=== PATIENT | female | born 1990 | race Hispanic/Latino ===

== ENCOUNTER 2021-07-09 08:13 | Emergency (ER) | payer OTHER, SELFPAY ==
--- NOTE | 2021-07-09 08:20 | ED.URI ---
HPI - URI/Sore Throat General Chief Complaint: Upper Respiratory Infection Stated Complaint: cough Time Seen by Provider: 07/09/21 08:30 Source: patient, RN notes reviewed and old records reviewed Mode of arrival: ambulatory Limitations: no limitations History of Present Illness HPI Narrative: 31 year old female who presents to [facility] with complaints of cough, runny nose and some sinus pressure for 1 week. Patient denies any fevers no sweats or chills or any body aches. Patient reports that she has not had Covid or influenza vaccines. Patient states she has been taking cold and flu day and night medications with no resolution of symptoms. Patient states coworker coughed on her who was ill does not know if he was positive for Covid. MD elicited complaint: cough, rhinorrhea, nasal congestion and sinus pain Pertinent past history: other (Lupus) Related Data Home Medications Medication Instructions Recorded Confirmed etonogestrel [Implanon] 1 implant SUBDERMAL ONCE 07/09/21 07/09/21 Allergies Allergy/AdvReac Type Severity Reaction Status Date / Time prednisone Allergy Rash Verified 07/09/21 08:32 Review of Systems Review of Systems: CONSTITUTIONAL: Denies fever, chills, or sweats. EYES: Denies visual changes, redness, or discharge. ENT: Positive rhinorrhea, congestion, no sore throat, or otalgia. CARDIOVASCULAR: Denies chest pain, palpitations, or edema. RESPIRATORY: Positive cough denies dyspnea. GASTROINTESTINAL: Denies abdominal pain, nausea, vomiting, or diarrhea. GENITOURINARY: Denies dysuria or hematuria. SKIN: Denies rash or itching. MUSCULOSKELETAL: Reports some back pain, joint pain, denies body aches. NEUROLOGIC: Denies headache, numbness, or weakness. PSYCHIATRIC: Denies anxiety or depression. All systems reviewed & are unremarkable except as noted in HPI and below PMFSH Past Medical History Medical History (Updated 07/09/21 @ 08:58 by Desirae Aguilar NP) Lupus Surgical History Surgical History (Updated 07/09/21 @ 08:22 by Desirae Aguilar NP) Hx of cholecystectomy Family History Family History (Updated 09/12/17 @ 09:00 by DOCTOR UNKNOWN) Other Diabetes mellitus Social History Social History (Updated 07/09/21 @ 08:36 by Desirae Aguilar NP) Smoking status: Never smoker Alcohol intake: current Substance use: never Living arrangements: with family Gender identity (if verbalized by the patient): Female Comments At time of signature, agree with nursing past medical, surgical, social and family history. There is no relevant family history pertinent to the presenting complaint Exam Narrative: GENERAL: Well-appearing, well-nourished, and in no acute distress. HEAD: Normocephalic, atraumatic. EYES: PERRLA and EOMI. ENT: Nares red with clear rhinorrhea no epistaxis. Mucous membranes moist. TMs normal with good light reflex, throat with mild redness no exudates or lesions no tonsil enlargement NECK: Supple. No lymph adenopathy CHEST: Clear to auscultation. No respiratory distress. SaO2 100% on room air HEART: Regular rate and rhythm. No murmur heard. Normal peripheral pulses. ABDOMEN: Soft, nontender, nondistended, normal active bowel sounds. EXTREMITIES: Normal range of motion. No edema. SKIN: Warm, dry, no rash. NEURO: No focal deficits. Alert and oriented x3. Course Course Level of Care: Express Care Visit Vital Signs Vital signs: Vital Signs Temperature 36.4 C L 07/09/21 08:24 Pulse Rate 76 07/09/21 08:24 Respiratory Rate 16 07/09/21 08:24 Blood Pressure 119/68 07/09/21 08:24 Pulse Oximetry 100 07/09/21 08:24 Temperature 36.4 C L 07/09/21 08:24 Pulse Rate 76 07/09/21 08:24 Respiratory Rate 16 07/09/21 08:24 Blood Pressure 119/68 07/09/21 08:24 Pulse Oximetry 100 07/09/21 08:24 MDM - URI/Sore Throat Differential Diagnosis Differential diagnosis: Likely upper respiratory infection, sinusitis, viral infection and o
[2021-07-09 08:24] VITALS: BP 119/68; PULSE 76; RESP 16; TEMP 36.4; O2SAT 100
== END 2021-07-09 09:05 | disposition home or self-care (01) ==
PROVIDERS: Emergency Provider Registered Nurse; PCP Registered Nurse
DX: B34.9 Viral infection, unspecified (principal); J06.9 Acute upper respiratory infection, unspecified; Z20.822 Contact with and (suspected) exposure to COVID-19; M32.9 Systemic lupus erythematosus, unspecified
CPT/HCPCS: 87426; 87804; 99213; C9803; G0463

== ENCOUNTER 2022-08-06 14:10 | Emergency (ER) | payer OTHER, SELFPAY ==
[2022-08-06 14:19] VITALS: BP 124/77; PULSE 98; RESP 14; TEMP 37.9; O2SAT 99
--- NOTE | 2022-08-06 14:23 | ED.URI ---
HPI - URI/Sore Throat General Chief Complaint: Upper Respiratory Infection Stated Complaint: sore throat Time Seen by Provider: 08/06/22 14:39 Source: patient and RN notes reviewed Mode of arrival: ambulatory Limitations: no limitations History of Present Illness HPI Narrative: 32-year-old female presents concern for dry cough that started last night, sore throat. Reports today she started having hot and cold spells. 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 She denies taking any medications for her symptoms. MD elicited complaint: sore throat Related Data Home Medications Medication Instructions Recorded Confirmed etonogestrel 68 mg subdermal 1 implant subdermal ONCE 07/09/21 08/06/22 implant ergocalciferol (vitamin D2) 1,250 1,250 mcg PO DAILY 08/06/22 08/06/22 mcg (50,000 unit) capsule Allergies Allergy/AdvReac Type Severity Reaction Status Date / Time prednisone Allergy Rash Verified 08/06/22 14:14 Review of Systems Review of Systems: CONSTITUTIONAL: For malaise, chills, sweats EYES: Denies visual changes, redness, or discharge. ENT: Denies rhinorrhea, congestion, sinus pain, otalgia. Reports sore throat. CARDIOVASCULAR: Denies chest pain, palpitations, or edema. RESPIRATORY: Reports cough. Denies dyspnea. GASTROINTESTINAL: Denies abdominal pain, nausea, vomiting, diarrhea SKIN: Denies rash or itching. MUSCULOSKELETAL: Reports myalgia. NEUROLOGIC: Denies headache. All systems reviewed & are unremarkable except as noted in HPI and below PMFSH Past Medical History Medical History (Updated 08/06/22 @ 15:02 by Annalise Shane NP) Lupus Surgical History Surgical History (Updated 07/09/21 @ 08:22 by Desirae Aguilar NP) Hx of cholecystectomy Family History Family History (Updated 09/12/17 @ 09:00 by DOCTOR UNKNOWN) Other Diabetes mellitus Social History Social History (Updated 07/09/21 @ 08:36 by Desirae Aguilar NP) Smoking status: Never smoker Alcohol intake: current Substance use: never Living arrangements: with family Gender identity (if verbalized by the patient): Female Comments At time of signature, agree with nursing past medical, surgical, social and family history. There is no relevant family history pertinent to the presenting complaint Exam Narrative: GENERAL: Well-appearing, well-nourished, and in no acute distress. HEAD: Normocephalic EYES: PERRLA, conjunctivae clear ENT: Nares clear, turbinates edematous and erythematous, clear discharge. Mucous membranes moist. TM pearly ferguson with sharp light reflex bilaterally; no tragal tenderness. Oropharynx not erythematous without lesions. Tonsils not enlarged and without exudate, no drooling, no hoarseness, no trismus, uvula midline. NECK: Supple. No lymphadenopathy CHEST: Clear to auscultation, breath sounds equal. No wheezing, rhonchi, rales, or stridor. No respiratory distress, speaks in full sentences. HEART: Regular rate and rhythm. No murmur heard. SKIN: Warm, dry, no rash. NEURO: Alert and oriented x3. PSYCH: Normal mood and affect Course Course Emergency Course: Patient is aware of diagnosis, understands and agrees to treatment plan. Anticipatory guidance given. Patient agrees to follow-up as directed and is aware of reasons to seek care at the emergency department. Portions of this record may have been created with voice recognition software Level of Care: Express Care Visit Vital Signs Vital signs: Vital Signs Temperature 100.2 F H 08/06/22 14:19 Pulse Rate 98 08/06/22 14:19 Respiratory Rate 14 08/06/22 14:19 Blood Pressure 124/77 08/06/22 14:19 Pulse Oximetry 99 08/06/22 14:19 Oxygen Delivery Room Air 08/06/22 14:19 Temperature 100.2 F H 08/06/22 14:19 Pulse Rate 98 08/06/22 14:19 Respiratory Rate 14 08/06/22 14:19 Blood Pressure 124/77 08/06/22 14:19 Pulse Oximetry 99 08/06/22 14:19 Oxygen Delivery Room Air 08/06/22 14:19 Reviewed.
== END 2022-08-06 15:07 | disposition home or self-care (01) ==
PROVIDERS: Emergency Provider Nurse Practitioner; PCP Registered Nurse
DX: J06.9 Acute upper respiratory infection, unspecified (principal); Z20.822 Contact with and (suspected) exposure to COVID-19; M32.9 Systemic lupus erythematosus, unspecified
CPT/HCPCS: 87081; 87426; 87804; 87880; 99213; C9803; G0463

== ENCOUNTER 2024-02-03 12:52 | Emergency (ER) | payer OTHER, SELFPAY ==
[2024-02-03 13:05] VITALS: BP 130/81; PULSE 85; RESP 16; TEMP 37; O2SAT 98
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
== END 2024-02-03 13:40 | disposition home or self-care (01) ==
PROVIDERS: Emergency Provider Nurse Practitioner; PCP Registered Nurse
DX: M54.50 Low back pain, unspecified (principal); M32.9 Systemic lupus erythematosus, unspecified
CPT/HCPCS: 99213; G0463

== ENCOUNTER 2024-08-14 18:38 | Emergency (ER) | payer OTHER, SELFPAY ==
--- OUTSIDE RECORDS SUMMARY | 2024-08-14 18:40 | XMS_ITS | Patient Health Summary ---
Author Organization [facility] Address [address] [place] [address] Care Team Providers Care Appliance Counselor Name Role Phone Timmy Wilson TELEVISION NEWS PRODUCER-PENS AND PENCILS DIPPER Primary Care Pro vider Note from [facility],non-owned Affiliates and Associated Physician Practices is amultiple site organization consisting of ambulatory clinics and hospital sitesin [place], [place] and [place]. This disclosure is being madepursuant to the Care Everywhere program and may not contain all information available regarding this patient. Last updated 18.[facility] Allergies No known active allergies Medications * Be aware that medications may not be up to date on this document. Alwaysverify current medications with the patient. * etonogestrel (NEXPLANON) 68 MG implant 68 mg by Subdermal route as directed * hydroxychloroquine (PLAQUENIL) 200 MG tablet(Started 10/04/2018) Take 1 tablet by mouth 2 times daily Reasons: positive ALBARO/ malar rash 2 refills remaining * meloxicam (MOBIC) 15 MG tablet(Started 06/25/2020) Take 1 tablet by mouth once daily 1 refill by 06/25/2021 * vitamin D3-cholecalciferol (CHOLECALCIFEROL) 25 MCG (1000 UNITS) tablet (Started 10/01/2020) Take 1 (one) tablet by mouth once daily 1 refill by 10/01/2021 Active Problems Problem Noted Date Diagnosed Date Positive ALBARO (antinuclear antibody) 08/09/2018 Arthralgia 08/09/2018 Myalgia 08/09/2018 Fatigue 08/09/2018 Social History Tobacco Use Types Packs/Day Years Used Date Smoking Tobacco: Never Smokeless Tobacco: Never Alcohol Use Standard Drinks/Week Comments No 0 (1 standard drink = 0.6 oz pur e alcohol) Sex and Gender Information Value Date Recorded Sex Assigned at Not on file Gender Identity Not on file Sexual Orientation Not on file Last Filed Vital Signs Vital Sign Reading Time Taken Comments Blood Pressure 112/64 10/04/2018 11:59 AM CDT Pulse 62 10/04/2018 11:59 AM CDT Temperature 36.1 C (97 F) 06/25/2020 2:41 PM LYRIC WRITER Respiratory Rate - - Oxygen Saturation 99% 10/04/2018 11:59 AM CDT Inhaled Oxygen Concentration - - Weight 93 kg (205 lb) 06/25/2020 2:41 PM LYRIC WRITER Height 157.5 cm (5' 2 ) 06/25/2020 2:41 PM LYRIC WRITER Body Mass Index 37.49 06/25/2020 2:41 PM LYRIC WRITER Procedures * LDH BLOOD(Performed 06/25/2020) Performed for Positive ALBARO (antinuclear antibody) * CK BLOOD(Performed 06/25/2020) Performed for Positive ALBARO (antinuclear antibody) * ERYTHROCYTE SEDIMENTATION RATE(Performed 06/25/2020) Performed for Positive ALBARO (antinuclear antibody) * COMPREHENSIVE METABOLIC PANEL(Performed 06/25/2020) Performed for Positive ALBARO (antinuclear antibody) * CBC W AUTO DIFFERENTIAL(Performed 06/25/2020) Performed for Positive ALBARO (antinuclear antibody) * TSH(Performed 06/25/2020) Performed for Positive ALBARO (antinuclear antibody) * VITAMIN D 25-HYDROXY(Performed 06/25/2020) Performed for Positive ALBARO (antinuclear antibody) * SS-B (SJOGREN'S) ANTIBODY(Performed 06/25/2020) Performed for Positive ALBARO (antinuclear antibody) * SHERMAN/MACHINE REBUILDER (SUZANNE) ANTIBODY IGG(Performed 06/25/2020) Performed for Positive ALBARO (antinuclear antibody) * RIBOSOMAL P PROTEIN ANTIBODY(Performed 06/25/2020) Performed for Positive ALBARO (antinuclear antibody) * DNA ANTIBODY DS CRITHIDIA TITER(Performed 06/25/2020) Performed for Positive ALBARO (antinuclear antibody) * COMPLEMENT C3(Performed 06/25/2020) Performed for Positive ALBARO (antinuclear antibody) * COMPLEMENT C4(Performed 06/25/2020) Performed for Positive ALBARO (antinuclear antibody) * SS-A (SJOGREN'S) 52+60 ANTIBODIES(Performed 06/25/2020) Performed for Positive ALBARO (antinuclear antibody) * QUANTIFERON-TB GOLD PLUS 4-TUBE(Performed 06/25/2020) Performed for Positive ALBARO (antinuclear antibody) * ALDOLASE(Performed 06/25/2020) Performed for Positive ALBARO (antinuclear antibody) * C-REACTIVE PROTEIN(Performed 06/25/2020) Performed for Positive ALBARO (antinuclear antibody) * CHROMATIN ANTIBODY(Performed 06/25/2020) Performed for Positive ALBARO (antinuclear antibody) * HEPATITIS B SURFACE ANTIGEN W RFLX CONFIRMATION(Performed 06/25/2020) Performed for Positive ALBARO (antinuclear antibody) * HEPATITIS B CORE ANTIBODY TOTAL(Performed 06/25/2020) Performed for Positive ALBARO (antinuclear antibody) * HEPATITIS C AB SCREEN RFLX NAAT QUANT(Performed 06/25/2020) Performed for Positive ALBARO (antinuclear antibody) * ALBARO BLOOD SCREEN W/REFLEX TITER(Performed 06/25/2020) Performed for Positive ALBARO (antinuclear antibody) * URINALYSIS MICROSCOPIC ONLY REFLEXED(Performed 08/09/2018) Performed for Positive ALBARO (antinuclear antibody), Arthralgia, unspecified joint, Myalgia, Fatigue,unspecified type * CBC W AUTO DIFFERENTIAL(Performed 08/09/2018) Performed for Positive ALBARO (antinuclear antibody), Arthralgia, unspecified joint, Myalgia, Fatigue,unspecified type * COMPREHENSIVE METABOLIC PANEL(Performed 08/09/2018) Performed for Positive ALBARO (antinuclear antibody), Arthralgia, unspecified joint, Myalgia, Fatigue,unspecified type * C-REACTIVE PROTEIN(Performed 08/09/2018) Performed for Positive ALBARO (antinuclear antibody), Arthralgia, unspecified joint, Myalgia, Fatigue,unspecified type * ERYTHROCYTE SEDIMENTATION RATE(Performed 08/09/2018) Performed for Positive ALBARO (antinuclear antibody), Arthralgia, unspecified joint, Myalgia, Fatigue,unspecified type * URINALYSIS W/MICROSCOPIC REFLEX TO CULTURE(Performed 08/09/2018) Performed for Positive ALBARO (antinuclear antibody), Arthralgia, unspecified joint, Myalgia, Fatigue,unspecified type * VITAMIN D 25-HYDROXY(Performed 08/09/2018) Performed for Positive ALBARO (antinuclear antibody), Arthralgia, unspecified joint, Myalgia, Fatigue,unspecified type * HEPATITIS C ANTIBODY(Performed 08/09/2018) Performed for Positive ALBARO (antinuclear antibody), Arthralgia, unspecified joint, Myalgia, Fatigue,unspecified type * THYROGLOBULIN ANTIBODY(Performed 08/09/2018) Performed for Positive ALBARO (antinuclear antibody), Arthralgia, unspecified joint, Myalgia, Fatigue,unspecified type * THYROID PEROXIDASE ANTIBODY(Performed 08/09/2018) Performed for Positive ALBARO (antinuclear antibody), Arthralgia, unspecified joint, Myalgia, Fatigue,unspecified type * TSH(Performed 08/09/2018) Performed for Positive ALBARO (antinuclear antibody), Arthralgia, unspecified joint, Myalgia, Fatigue,unspecified type * RHEUMATOID FACTOR BLOOD QUANTITATIVE(Performed 08/09/2018) Performed for Positive ALBARO (antinuclear antibody), Arthralgia, unspecified joint, Myalgia, Fatigue,unspecified type * CYCLIC CITRUL PEPTIDE ANTIBODY IGG/IGA (CCP)(Performed 08/09/2018) Performed for Positive ALBARO (antinuclear antibody), Arthralgia, unspecified joint, Myalgia, Fatigue,unspecified type * DNA ANTIBODY DS CRITHIDIA IFA(Performed 08/09/2018) Performed for Positive ALBARO (antinuclear antibody), Arthralgia, unspecified joint, Myalgia, Fatigue,unspecified type * HISTONE ANTIBODY(Performed 08/09/2018) Performed for Positive ALBARO (antinuclear antibody), Arthralgia, unspecified joint, Myalgia, Fatigue,unspecified type * TISSUE TRANSGLUTAMINASE AB IGG(Performed 08/09/2018) Performed for Positive ALBARO (antinuclear antibody), Arthralgia, unspecified joint, Myalgia, Fatigue,unspecified type * TISSUE TRANSGLUTAMINASE AB IGA(Performed 08/09/2018) Performed for Positive ALBARO (antinuclear antibody), Arthralgia, unspecified joint, Myalgia, Fatigue,unspecified type * MACHINE REBUILDER ANTIBODY(Performed 08/09/2018) Performed for Positive ALBARO (antinuclear antibody), Arthralgia, unspecified joint, Myalgia, Fatigue,unspecified type * SHERMAN (SM) ANTIBODY SUZANNE(Performed 08/09/2018) Performed for Positive ALBARO (antinuclear antibody), Arthralgia, unspecified joint, Myalgia, Fatigue,unspecified type * SS-A/SS-B (SJOGREN'S) ANTIBODY PANEL(Performed 08/09/2018) Performed for Positive ALBARO (antinuclear antibody), Arthralgia, unspecified joint, Myalgia, Fatigue,unspecified type * CHROMATIN ANTIBODY(Performed 08/09/2018) Performed for Positive ALBARO (antinuclear antibody), Arthralgia, unspecified joint, Myalgia, Fatigue,unspecified type * COMPLEMENT TOTAL(Performed 08/09/2018) Performed for Positive ALBARO (antinuclear antibody), Arthralgia, unspecified joint, Myalgia, Fatigue,unspecified type * MAGALY STAINING PATTERNS REFLEXED(Performed 08/09/2018) Performed for Positive ALBARO (antinuclear antibody), Arthralgia, unspecified joint, Myalgia, Fatigue,unspecified type * COMPLEMENT C3(Performed 08/09/2018) Performed for Positive ALBARO (antinuclear antibody), Arthralgia, unspecified joint, Myalgia, Fatigue,unspecified type * COMPLEMENT C4(Performed 08/09/2018) Performed for Positive ALBARO (antinuclear antibody), Arthralgia, unspecified joint, Myalgia, Fatigue,unspecified type * ALBARO BLOOD SCREEN W/REFLEX TITER(Performed 08/09/2018) Performed for Positive ALBARO (antinuclear antibody), Arthralgia, unspecified joint, Myalgia, Fatigue,unspecified type * XR FOOT RIGHT 2VW(Performed 12/26/2017) Performed for Pain in joint, multiple sites * XR FOOT LEFT 2VW(Performed 12/26/2017) Performed for Pain in joint, multiple sites * XR WRIST RIGHT 2VW(Performed 12/26/2017) Performed for Pain in joint, multiple sites * XR WRIST LEFT 2VW(Performed 12/26/2017) Performed for Pain in joint, multiple sites * XR HAND RIGHT 2VW(Performed 12/26/2017) Performed for Pain in joint, multiple sites * XR HAND LEFT 2VW(Performed 12/26/2017) Performed for Pain in joint, multiple sites * XR KNEE RIGHT 2VW OR LESS(Performed 12/26/2017) Performed for Pain in joint, multiple sites * XR KNEE LEFT 2VW OR LESS(Performed 12/26/2017) Performed for Pain in joint, multiple sites Results * SS-A (SJOGREN'S) 52+60 ANTIBODIES (06/25/2020 3:51 PM LYRIC WRITER) SS-A 52 Antibody 2 0 - 40 AU/mL 06/28/2020 8:43 AM LYRIC WRITER [facility] ([facility]) Comment: INTERPRETIVE INFORMATION: SSA-52 (Ro52) (SUZANNE) Antibody, IgG 29 AU/mL or Less ............. Negative 30 - 40 AU/mL ................ Equivocal 41 AU/mL or Greater .......... Positive SSA-52 (Ro52) and/or SSA-60 (Ro60) antibodies are associated with a diagnosis of Sjogren syndrome, systemic lupus erythematosus (SLE), and systemic sclerosis. SSA-52 antibody overlaps significantly with the major SSc-related antibodies. SSA-52 (Ro52) antibody occurs frequently in patients with inflammatory myopathies, often in the presence of interstitial lung disease. SS-A 60 Antibody 1 0 - 40 AU/mL 06/28/2020 8:43 AM LYRIC WRITER [facility] ([facility]) Comment: REFERENCE INTERVAL: SSA-60 (Ro60) (SUZANNE) Antibody, IgG 29 AU/mL or Less ............. Negative 30 - 40 AU/mL ................ Equivocal 41 AU/mL or Greater .......... Positive Performed By: [facility] [address] [place] [address] Gold Leaf Printer: Kirsten Mccall MD Blood BLOOD SPECIMEN / Unknown Lab Venipuncture / Unknown 06/25/2020 3:51 PM LYRIC WRITER 06/25/2020 5:20 PM LYRIC WRITER Karina Lazaro MD LAB - CHEMISTRY HAYLEY SILVA [facility] Organization Address City/State/ZIP Co de Phone Number [facility] [address]) [address] [place] [address], [facility] * SHERMAN/MACHINE REBUILDER (SUZANNE) ANTIBODY IGG (06/25/2020 3:51 PM LYRIC WRITER) Sherman/MACHINE REBUILDER (SUZANNE) Antibody IgG 3 0 - 40 AU/mL 06/28/2020 8:43 AM LYRIC WRITER [facility] ([facility]) Comment: INTERPRETIVE INFORMATION: Sherman/MACHINE REBUILDER (SUZANNE) Antibody, IgG 29 AU/mL or Less ............. Negative 30 - 40 AU/mL ................ Equivocal 41 AU/mL or Greater .......... Positive Sherman/MACHINE REBUILDER antibodies are frequently seen in patients with mixed connective tissue disease (MCTD) and are also associated with other systemic autoimmune rheumatic diseases (SARDs) such as systemic lupus erythematosus (SLE), systemic sclerosis, and myositis. Antibodies targeting the Sherman/MACHINE REBUILDER antigenic complex also recognize Sherman antigens, therefore, the Sherman antibody response must be considered when interpreting these results. Performed By: [facility] [address] [place] [address] Gold Leaf Printer: Kirsten Mccall MD Blood BLOOD SPECIMEN / Unknown Lab Venipuncture / Unknown 06/25/2020 3:51 PM LYRIC WRITER 06/25/2020 5:20 PM LYRIC WRITER Karina Lazaro MD LAB - CHEMISTRY HAYLEY SILVA [facility] Organization Address City/State/ZIP Co de Phone Number [facility] [address]) [address] [place] [address] * QUANTIFERON-TB GOLD PLUS 4-TUBE (06/25/2020 3:51 PM LYRIC WRITER) [facility] QuantiFERON NIL 0.02 IU/mL 0 11:53 PM LYRIC WRITER [facility] ([facility]) Comment: Performed By: [facility] [address] [place] [address] Gold Leaf Printer: Kirsten Mccall MD QuantiFERON TB Gold Plus Negative Negative 06/27/2020 11:53 PM LYRIC WRITER [facility] [facility]) Comment: Interpretive Data: Quantiferon TB Gold Plus Interferon gamma release is measured for specimens from each of the four collection tubes. A qualitative result (Negative, Positive, or Indeterminate) is based on interpretation of the four values, NIL, MITOGEN minus NIL (MITOGEN-NIL), TB1 minus NIL (TB1-NIL), and TB2 minus NIL (TB2-NIL). The NIL value represents nonspecific reactivity produced by the patient specimen. The MITOGEN-NIL value serves as the positive control for the patient specimen, demonstrating successful lymphocyte activity. The TB1-NIL tube specifically detects CD4+ lymphocyte reactivity, specifically stimulated by the TB1 antigens. The TB2-NIL tube detects both CD4+ and CD8+ lymphocyte reactivity, stimulated by TB2 antigens. An overall Negative result does not completely rule out TB infection. A false-positive result in the absence of other clinical evidence of TB infection is not uncommon. Refer to: Updated Guidelines for Using Interferon Gamma Release Assays to Detect Mycobacterium tuberculosis Infection --- [place], 2010 (http://www.cdc.gov/mmwr/preview/mmwrhtml/od2626j8.htm), for more information concerning test performance in low-prevalence populations and use in occupational screening. QuantiFERON Plus TB1 Minus NIL 0.08 0.00 - 0.34 IU/mL 06/27/2020 11:53 PM LYRIC WRITER [facility] ([facility]) QuantiFERON Plus TB2 Minus NIL 0.03 0.00 - 0.34 IU/mL 06/27/2020 11:53 PM LYRIC WRITER [facility] ([facility]) QuantiFERON Mitogen Minus NIL 9.05 IU/mL 06/27/2020 11:53 PM LYRIC WRITER [facility]) Blood BLOOD SPECIMEN / Unknown Lab Venipuncture / Unknown 06/25/2020 3:51 PM LYRIC WRITER 06/25/2020 4:33 PM LYRIC WRITER Karina Lazaro MD LAB - CHEMISTRY HAYLEY SILVA [facility] Organization Address City/State/ZIP Co de Phone Number [facility] [address]) [address] * DNA ANTIBODY DS CRITHIDIA TITER (06/25/2020 3:51 PM LYRIC WRITER) [facility] dsDNA Antibody IgG <1:10 <1:10 2019 9:43 AM LYRIC WRITER [facility] ([facility]) Comment: INTERPRETIVE INFORMATION: Double-Stranded DNA (dsDNA) Antibody, IgG by IFA (using Crithidia luciliae) Positivity for anti-double stranded DNA (anti-dsDNA) IgG antibody is a diagnostic criterion of systemic lupus erythematosus (SLE). The presence of the anti-dsDNA IgG antibody is identified by IFA titer (Crithidia luciliae indirect fluorescent test [ISRRAEL]). ISRRAEL is highly specific for SLE with a sensitivity of 50-60 percent. Some patients with early or inactive SLE may be positive for anti-dsDNA IgG by APRYL but negative by ISRRAEL. If the ISRRAEL result is negative but the patient has a positive APRYL and clinical suspicion remains, consider antinuclear antibody (ALBARO) testing by IFA. Additional information and recommendations for testing may be found at http://[email or web address]/Topics/AutoimmuneDz/[email or web address]/[email or web address] ndex.[email or web address]. Performed By: [facility] [address] [place] [address] Gold Leaf Printer: Kirsten Mccall MD Blood BLOOD SPECIMEN / Unknown Lab Venipuncture / Unknown 06/25/2020 3:51 PM LYRIC WRITER 06/25/2020 5:21 PM LYRIC WRITER Karina Lazaro MD LAB - SEROLOGY ORDER QUINN [facility]) [address] [place] [address] * RIBOSOMAL P PROTEIN ANTIBODY (06/25/2020 3:51 PM LYRIC WRITER) [facility] Ribosomal P Protein Antibody 2 0 - 40 AU/mL 06/28/2020 8:43 AM LYRIC WRITER [facility] ([facility]) Comment: INTERPRETIVE INFORMATION: Ribosomal P Protein Ab, IgG 29 AU/mL or Less ............. Negative 30 - 40 AU/mL ................ Equivocal 41 AU/mL or Greater .......... Positive Autoantibodies reacting with cytoplasmic ribosomes are highly specific for systemic lupus erythematosus (SLE). Ribosomal-P antibodies are found in approximately 12% of patients with SLE and in 90% of patients with lupus psychosis; titers often increase more than five fold during and before active phases of psychosis. Performed By: [facility] [address] [place] [address] Gold Leaf Printer: Kirsten Mccall MD Blood BLOOD SPECIMEN / Unknown Lab Venipuncture / Unknown 06/25/2020 3:51 PM LYRIC WRITER 06/25/2020 5:21 PM LYRIC WRITER Karina Lazaro MD LAB - CHEMISTRY HAYLEY SILVA Performing Organization Address City/[facility] Co de Phone Number [facility] [facility]) [address] * SS-B (SJOGREN'S) ANTIBODY (06/25/2020 3:51 PM LYRIC WRITER) SS-B Antibody 0 0 - 40 AU/mL 06/28/2020 8:43 AM LYRIC WRITER [facility] ([facility]) Comment: INTERPRETIVE INFORMATION: SSB (La) (SUZANNE) Ab, IgG 29 AU/mL or Less ............. Negative 30 - 40 AU/mL ................ Equivocal 41 AU/mL or Greater .......... Positive SSB (La) antibody is seen in 50-60% of Sjogren syndrome cases and is specific if it is the only SUZANNE antibody present. 15-25% of patients with systemic lupus erythematosus (SLE) and 5-10% of patients with progressive systemic sclerosis (PSS) also have this antibody. Performed By: [facility] [address] [place] [address] Gold Leaf Printer: Kirsten Mccall MD Blood BLOOD SPECIMEN / Unknown Lab Venipuncture / Unknown 06/25/2020 3:51 PM LYRIC WRITER 06/25/2020 5:20 PM LYRIC WRITER Karian Lazaro MD LAB - CHEMISTRY HAYLEY SILVA [facility] ([facility]) [address] * (ABNORMAL) VITAMIN D 25-HYDROXY (06/25/2020 3:51 PM LYRIC WRITER) Only the most recent of2 resultswithin the time period is included. Vitamin D, 25 Hydroxy 17.0(L) See comment: ng/mL 06/25/2020 5:19 PM LYRIC WRITER [facility] Comment: The recommendations for 25-Hydroxy Vitamin D clinical decision points are as follows: Deficient: <20.0 ng/mL Insufficient: 20.0 - 29.9 ng/mL Sufficient: > or =30.0 ng/mL If the 25-Hydroxy Vitamin D results are inconsitent with clinical evidence, it is recommended that follow-up testing using a method such as LC/MS/MS be performed to confirm the result. Reference: The Endocrine Society Clinical Practice Guidelines. 2011 Blood BLOOD SPECIMEN / Unknown Lab Venipuncture / Unknown 06/25/2020 3:51 PM LYRIC WRITER 06/25/2020 4:34 PM LYRIC WRITER Karina Lazaro MD LAB - CHEMISTRY ORDE RABLES [address] [address], [facility] [phone] * (ABNORMAL) ERYTHROCYTE SEDIMENTATION RATE (06/25/2020 3:51 PM LYRIC WRITER) Only the most recent of2 resultswithin the time period is included. Erythrocyte Sedimentation Rate Westergren 42(H) 0 - 20 MM/HR 06/25/2020 4:57 PM [facility] Blood BLOOD SPECIMEN / Unknown Lab Venipuncture / Unknown 06/25/2020 3:51 PM LYRIC WRITER 06/25/2020 4:34 PM LYRIC WRITER Karina Lazaro MD LAB - HEMATOLOGY ORD ERABLES Performing Organization Address City/[facility]/ZIP Co de Phone Number [address] [address], [facility] [phone] * (ABNORMAL) CBC WITH DIFFERENTIAL (06/25/2020 3:51 PM LYRIC WRITER) Only the most recent of2 resultswithin the time period is included. WBC 10.1 3.5 - 10.5 10 3/uL 06/25/2020 4:43 PM LYRIC WRITER [facility] RBC 4.90 3.90 - 5.00 10 6/uL 06/25/2020 4:43 PM [facility] Hemoglobin 13.7 12.0 - 15.5 g/dL 06/25/2020 4:43 PM [facility] Hematocrit 41.5 35.0 - 45.0 % 06/25/2020 4:43 PM [facility] MCV 84.7 81.0 - 97.0 fL 06/25/2020 4:43 PM [facility] MCH 28.0 28.0 - 34.0 pg 06/25/2020 4:43 PM [facility] MCHC 33.0 32.0 - 36.0 g/dL 06/25/2020 4:43 PM [facility] Platelet Count 337 150 - 400 10 3/uL 06/25/2020 4:43 PM [facility] RDW-SD 39.8 36.0 - 50.0 fL 06/25/2020 4:43 PM [facility] RDW-CV 13.0 11.2 - 14.8 % 06/25/2020 4:43 PM [facility] MPV 9.3 9.3 - 12.8 fL 06/25/2020 4:43 PM [facility] nRBC Absolute 0.00 0 10 3/uL 06/25/2020 4:43 PM [facility] nRBC Auto 0.0 0 /100 WBC 06/25/2020 4:43 PM [facility] Neutrophils % 60.6 35.0 - 70.0 % 06/25/2020 4:43 PM [facility] Lymphocytes % 29.9 19.7 - 55.1 % 06/25/2020 4:43 PM [facility] Monocytes % 6.6 3.0 - 15.0 % 06/25/2020 4:43 PM [facility] Eosinophils % 1.6 0.0 - 6.0 % 06/25/2020 4:43 PM [facility] Basophil % 0.8 0.0 - 1.5 % 06/25/2020 4:43 PM [facility] Neutrophils Absolute 6.1 1.6 - 7.0 10 3/uL 06/25/2020 4:43 PM [facility] Lymphocyte Absolute 3.0(H) 0.8 - 2.9 10 3/uL 06/25/2020 4:43 PM [facility] Monocytes Absolute 0.67(H) 0.14 - 0.66 10 3/uL 06/25/2020 4:43 PM [facility] Eosinophils Absolute 0.16 0.00 - 0.45 10 3/uL 06/25/2020 4:43 PM [facility] Basophils Absolute 0.08(H) 0.00 - 0.06 10 3/uL 06/25/2020 4:43 PM [facility] Immature Granulocytes % 0.5 0.0 - 1.0 % 06/25/2020 4:43 PM [facility] Blood BLOOD SPECIMEN / Unknown Lab Venipuncture / Unknown 06/25/2020 3:51 PM LYRIC WRITER 06/25/2020 4:34 PM LYRIC WRITER Karina Lazaro MD LAB - HEMATOLOGY ORD ERABLES [address] [address], [facility] [phone] * COMPLEMENT C4 (06/25/2020 3:51 PM LYRIC WRITER) Only the most recent of2 resultswithin the time period is included. Complement C4 31 15 - 57 mg/dL 06/25/2020 5:09 PM [facility] Blood BLOOD SPECIMEN / Unknown Lab Venipuncture / Unknown 06/25/2020 3:51 PM LYRIC WRITER 06/25/2020 4:34 PM LYRIC WRITER Karina Lazaro MD LAB - SEROLOGY ORDER QUINN Performing Organization Address City/[facility]/ZIP Co de Phone Number [address] [address], [facility] [phone] * (ABNORMAL) COMPREHENSIVE METABOLIC PANEL (06/25/2020 3:51 PM LYRIC WRITER) Only the most recent of2 resultswithin the time period is included. BUN 9 7 - 26 mg/dL 06/25/2020 5:09 PM [facility] Creatinine 0.6 0.6 - 1.2 mg/dL 06/25/2020 5:09 PM [facility] Sodium 138 136 - 145 mmol/L 06/25/2020 5:09 PM [facility] Potassium 3.3(L) 3.5 - 4.5 mmol/L 06/25/2020 5:09 PM [facility] Chloride 104 98 - 107 mmol/L 06/25/2020 5:09 PM [facility] CO2 23 22 - 29 mmol/L 06/25/2020 5:09 PM [facility] Glucose 93 70 - 115 mg/dL 06/25/2020 5:09 PM [facility] Calcium 9.1 8.4 - 10.2 mg/dL 06/25/2020 5:09 PM [facility] Protein Total 8.2 6.0 - 8.3 g/dL 06/25/2020 5:09 PM [facility] Albumin 4.2 3.4 - 5.0 g/dL 06/25/2020 5:09 PM [facility] Bilirubin Total 0.6 0.2 - 1.2 mg/dL 06/25/2020 5:09 PM [facility] Alkaline Phosphatase 49 40 - 150 Units/L 06/25/2020 5:09 PM [facility] ALT 45 0 - 55 Units/L 06/25/2020 5:09 PM [facility] AST 24 5 - 34 Units/L 06/25/2020 5:09 PM [facility] Anion Gap 14 8 - 18 06/25/2020 5:09 PM [facility] BUN/Creatinine Ratio 15 7 - 23 06/25/2020 5:09 PM [facility] Osmolality Calculated 284 270 - 300 mOsm/kg 06/25/2020 5:09 PM [facility] Albumin/Globulin Ratio 1.1 1.1 - 2.3 06/25/2020 5:09 PM [facility] eGFR >60 >60 mL/min/1.7 3 m2 06/25/2020 5:09 PM [facility] Blood BLOOD SPECIMEN / Unknown Lab Venipuncture / Unknown 06/25/2020 3:51 PM LYRIC WRITER 06/25/2020 4:34 PM [facility] Karina Lazaro MD LAB - CHEMISTRY HAYLEY SILVA [facility] [address] [place] [address], [facility] [phone] * LDH BLOOD (06/25/2020 3:51 PM LYRIC WRITER) Pathologist [facility] LDH Total 211 125 - 243 Units/L 06/25/2020 5:09 PM LYRIC WRITER [facility] Blood BLOOD SPECIMEN / Unknown Lab Venipuncture / Unknown 06/25/2020 3:51 PM LYRIC WRITER 06/25/2020 4:34 PM LYRIC WRITER Karina Lazaro MD LAB - CHEMISTRY HAYLEY SILVA [address] [address], [place] [phone] * CK BLOOD (06/25/2020 3:51 PM LYRIC WRITER) [facility] CK Total 105 30 - 200 Units/L 06/25/2020 5:09 PM LYRIC WRITER [facility] Blood BLOOD SPECIMEN / Unknown Lab Venipuncture / Unknown 06/25/2020 3:51 PM LYRIC WRITER 06/25/2020 4:34 PM LYRIC WRITER Karina Lazaro MD LAB - CHEMISTRY HAYLEY SILVA Performing Organization Address [facility]/ZIP Co de Phone Number [address] [address], [place] [phone] * TSH (06/25/2020 3:51 PM LYRIC WRITER) Only the most recent of2 resultswithin the time period is included. [facility] TSH 0.611 0.350 - 4.940 uIU/mL 06/25/2020 5:19 PM LYRIC WRITER [facility] Blood BLOOD SPECIMEN / Unknown Lab Venipuncture / Unknown 06/25/2020 3:51 PM LYRIC WRITER 06/25/2020 4:34 PM LYRIC WRITER Karina Lazaro MD LAB - CHEMISTRY HAYLEY SILVA Performing Organization Address City/[facility]/ZIP Co de Phone Number [address] [address], [place] [phone] * COMPLEMENT C3 (06/25/2020 3:51 PM LYRIC WRITER) Only the most recent of2 resultswithin the time period is included. Pathologist [facility] Complement C3 163 82 - 193 mg/dL 06/25/2020 5:09 PM LYRIC WRITER [facility] Blood BLOOD SPECIMEN / Unknown Lab Venipuncture / Unknown 06/25/2020 3:51 PM LYRIC WRITER 06/25/2020 4:34 PM LYRIC WRITER Karina Lazaro MD LAB - CHEMISTRY HAYLEY SILVA Performing Organization Address City/[facility]/ZIP Co de Phone Number [address] [address], [facility] [phone] * HEPATITIS C AB SCREEN RFLX NAAT QUANT (06/25/2020 3:50 PM LYRIC WRITER) [facility] Hepatitis C Antibody Non-react lakshmi Non-reac tive 06/25/2020 5:52 PM LYRIC WRITER [facility] Comment:Hepatitis C Antibody screen indicates no serologic evidence of past or current infection with Hepatitis C Virus. Patients with unexplained liver disease who are immunocompromised or suspected of having acute Hepatitis C infection may benefit from Nucleic Acid Test (IVON) for Hepatitis C Viral RNA to confirm Hepatitis C status. Blood BLOOD SPECIMEN / Unknown Lab Venipuncture / Unknown 06/25/2020 3:50 PM LYRIC WRITER 06/25/2020 5:52 PM LYRIC WRITER Karina Lazaro MD LAB - CHEMISTRY HAYLEY SILVA Performing Organization Address [facility] Co de Phone Number [address] [address], [facility] [phone] * CHROMATIN ANTIBODY (06/25/2020 3:50 PM LYRIC WRITER) Only the most recent of2 resultswithin the time period is included. [facility] Chromatin Antibody 3 0 - 19 Units 06/28/2020 9:40 AM LYRIC WRITER [employer] ([facility]) Comment: INTERPRETIVE INFORMATION: Chromatin Antibody, IgG 19 Units or less: Negative 20 - 60 Units: Moderate Positive 61 Units or greater: Strong Positive The presence of anti-chromatin antibodies may be useful in the diagnosis of systemic lupus erythematosus (SLE) or drug-induced lupus (DIL) and have been reported to be predictive of lupus nephritis, especially when antibody levels are high. Performed By: [facility] [address] [place] [address] Gold Leaf Printer: Kirsten Mccall MD Blood BLOOD SPECIMEN / Unknown Lab Venipuncture / Unknown 06/25/2020 3:50 PM LYRIC WRITER 06/25/2020 5:20 PM LYRIC WRITER Karina Lazaro MD LAB - SEROLOGY ORDER QUINN Performing Organization Address City/[facility]/ZIP Co de Phone Number [facility]) [address] [phone] * C-REACTIVE PROTEIN (06/25/2020 3:50 PM LYRIC WRITER) Only the most recent of2 resultswithin the time period is included. Pathologist [facility] C-Reactive Protein 0.5 <=0.5 mg/dL 06/25/2020 5:36 PM LYRIC WRITER [facility] Blood BLOOD SPECIMEN / Unknown Lab Venipuncture / Unknown 06/25/2020 3:50 PM LYRIC WRITER 06/25/2020 5:20 PM LYRIC WRITER Karina Lazaro MD LAB - CHEMISTRY ORDE RABLES Performing Organization Address City/[facility]/ZIP Co de Phone Number [address] [address], [facility] [phone] * ALBARO BLOOD SCREEN W/REFLEX TITER (06/25/2020 3:50 PM LYRIC WRITER) Only the most recent of2 resultswithin the time period is included. Pathologist [facility] ALBARO IgG None Detected None Detected 06/27/2020 11:07 PM LYRIC WRITER [facility]) Comment: If suspicion of connective tissue disease is strong and ALBARO EIA is negative, consider testing for ALBARO by IFA ([id number]). INTERPRETIVE INFORMATION: Anti-Nuclear Antibodies (ALBARO), IgG by APRYL Antinuclear Antibodies (ALBARO), IgG by APRYL: ALBARO specimens are screened using enzyme-linked immunosorbent assay (APRYL) methodology. All APRYL results reported as Detected are further tested by indirect fluorescent assay (IFA) using HEp-2 substrate with an IgG-specific conjugate. The ALBARO APRYL screen is designed to detect antibodies against dsDNA, histones, SS-A (Ro), SS-B (La), Sherman, Sherman/MACHINE REBUILDER, Scl-70, Re-1, centromeric proteins, other antigens extracted from the HEp-2 cell nucleus. ALBARO APRYL assays have been reported to have lower sensitivities than ALBARO IFA for systemic autoimmune rheumatic diseases (SARD). Negative results do not necessarily rule out SARD. Performed By: [facility] [address] [place] [address] Gold Leaf Printer: Kirsten Mccall MD Blood BLOOD SPECIMEN / Unknown Lab Venipuncture / Unknown 06/25/2020 3:50 PM LYRIC WRITER 06/25/2020 5:21 PM LYRIC WRITER Karina Lazaro MD LAB - CHEMISTRY HAYLEY SILVA Performing Organization Address [facility] Co de Phone Number [facility] [employer] [facility] [address]) [address] [place] [address] * ALDOLASE (06/25/2020 3:50 PM LYRIC WRITER) [facility] Aldolase 6.1 1.5 - 8.1 U/L 06/27/2020 4:20 PM LYRIC WRITER [facility]) Comment: REFERENCE INTERVAL: Aldolase Access complete set of age- and/or gender-specific reference intervals for this test in the [facility] Laboratory Test Directory ([employer]). Performed By: [facility] [address] [place] [address] Gold Leaf Printer: Kirsten Mccall MD Blood BLOOD SPECIMEN / Unknown Lab Venipuncture / Unknown 06/25/2020 3:50 PM LYRIC WRITER 06/25/2020 5:20 PM LYRIC WRITER Karina Lazaro MD LAB - CHEMISTRY [place]LEY SILVA Performing Organization Address [facility] Co de Phone Number [facility]) [address] [place] [address] * HEPATITIS B CORE ANTIBODY (06/25/2020 3:50 PM LYRIC WRITER) [facility] HBc Antibody Total Non-reacti ve Non-reacti ve 06/25/2020 5:52 PM LYRIC WRITER [facility] Blood BLOOD SPECIMEN / Unknown Lab Venipuncture / Unknown 06/25/2020 3:50 PM LYRIC WRITER 06/25/2020 5:52 PM LYRIC WRITER Karina Lazaro MD LAB - CHEMISTRY [place]AYLEY SILVA [address] [address], [facility] [phone] * HEPATITIS B SURFACE ANTIGEN W RFLX CONFIRMATION (06/25/2020 3:50 PM LYRIC WRITER) Hepatitis B Virus Surface Antigen Non-reacti ve Non-reacti ve 06/25/2020 5:52 PM LYRIC WRITER [facility] Blood BLOOD SPECIMEN / Unknown Lab Venipuncture / Unknown 06/25/2020 3:50 PM LYRIC WRITER 06/25/2020 5:52 PM LYRIC WRITER Karina Lazaro MD LAB - CHEMISTRY HAYLEY SILVA Performing Organization Address City/[facility]/ZIP Co de Phone Number [address] [address], [place] [phone] * URINALYSIS MICROSCOPIC ONLY REFLEXED (08/09/2018 11:20 AM LYRIC WRITER) WBC UA 0-5 0 - 5 /hpf [facility] INSURANCE BILL RBC UA 0-2 0 - 2 /hpf [facility] INSURANCE BILL Epithelial Cells (non renal) 0-10 0 - 10 /hpf [facility] INSURANCE BILL Epithelial Cells (renal) NOT NEEDED [facility] INSURANCE BILL Comment:Ancillary determined the test is not needed Casts ua NOT NEEDED [facility] INSURANCE BILL Comment:Ancillary determined the test is not needed Casts UA NOT NEEDED [facility] INSURANCE BILL Comment:Ancillary determined the test is not needed Crystals UA NOT NEEDED [facility] INSURANCE BILL Comment:Ancillary determined the test is not needed Crystals UA NOT NEEDED [facility] INSURANCE BILL Comment:Ancillary determined the test is not needed Mucus UA Present Not Estab. [facility] INSURANCE BILL Bacteria UA Few None seen/Few [facility] INSURANCE BILL Yeast UA NOT NEEDED [facility] INSURANCE BILL Comment:Ancillary determined the test is not needed Trichomonas UA NOT NEEDED [facility] INSURANCE BILL Comment:Ancillary determined the test is not needed Comment Urine NOT NEEDED [facility] INSURANCE BILL Comment:Ancillary determined the test is not needed 08/09/2018 11:2 0 AM LYRIC WRITER 08/09/2018 Narrative Resulting Agency Comment [facility] [address] [facility] [phone] Shannen Thomas MD LAB - URINALYSIS OR DERABLES [facility] INSURANCE BILL [address] [place] [address] * DNA ANTIBODY DS CRITHIDIA IFA (08/09/2018 11:20 AM LYRIC WRITER) dsDNA Antibody Screen Crithidia <1:10 titer [facility] INSURANCE BILL Comment: Reference Range: Negative: < 1:10 titer Positive: => 1:10 titer Double-stranded DNA (dsDNA) antibodies of the IgG class are an accepted criterion ([employer]) for the diagnosis of systemic lupus erythematosus (SLE). DsDNA antibodies detected by Crithidia method is highly specific (over 95%) for SLE. The sensitivity for this method is approximately 70-85% of patients with untreated SLE, and is rarely detectable in other connective tissue diseases. Weakly-positive results caused by low-avidity antibodies to dsDNA are not specific for SLE and can occur in a variety of diseases. The levels of IgG antibodies to dsDNA in serum are known to fluctuate with disease activity in lupus erythematous, often increasing prior to an increase in inflammation and decreasing in response to therapy. *This test has been developed and performance parameters have been validated by [employer] This test has not been approved by the U.S. Food and Drug Administration (FDA); however, US FDA approval is not required for clinical use. It is not intended that clinical diagnosis and patient management decisions be made using these results alone. This test has been validated using serum samples. The last greaser has not determined the efficacy of this test when performed on CSF, plasma, joint or pleural fluid specimens. The performance characteristics of this test were determined by [employer] Blood BLOOD SPECIMEN / Unknown 08/09/2018 11:20 AM LYRIC WRITER 08/09/2018 Narrative Resulting Agency Comment [employer] [address] [place] [address] [id number] Shannen Thomas MD LAB - SEROLOGY ORDE RABLES [facility] INSURANCE BILL [address] [place] [address] * CYCLIC CITRUL PEPTIDE ANTIBODY IGG/IGA (CCP) (08/09/2018 11:20 AM LYRIC WRITER) CCP Antibodies IgG/IgA 9 0 - 19 units [facility] INSURANCE BILL Comment: Negative <20 Weak positive 20 - 39 Moderate positive 40 - 59 Strong positive >59 Blood BLOOD SPECIMEN / Unknown 08/09/2018 11:20 AM LYRIC WRITER 08/09/2018 Narrative Resulting Agency Comment [address] [phone] Shannen Thomas MD LAB - SEROLOGY HAYLEY SILVA [facility] INSURANCE BILL [address] [place] [address] * URINALYSIS W/MICROSCOPIC REFLEX TO CULTURE (08/09/2018 11:20 AM LYRIC WRITER) Specific [place] UA 1.022 1.005 - 1.030 [facility] INSURANCE BILL pH UA 7.5 5.0 - 7.5 [facility] INSURANCE BILL Color UA Yellow Yellow [facility] INSURANCE BILL Appearance Clear Clear [facility] INSURANCE BILL Leukocyte UA Negative Negative [facility] INSURANCE BILL Protein UA Negative Negative/Tra ce [facility] INSURANCE BILL Glucose UA Negative Negative [facility] INSURANCE BILL Ketone UA Negative Negative [facility] INSURANCE BILL Occult Blood Urine Negative Negative [facility] INSURANCE BILL Bilirubin UA Negative Negative [facility] INSURANCE BILL Urobilinogen 0.2 0.2 - 1.0 mg/dL [facility] INSURANCE BILL Nitrite UA Negative Negative [facility] INSURANCE BILL Microscopic Examination Urine [facility] INSURANCE BILL Comment:Microscopic follows if indicated. Microscopic Examination Urine See below: [facility] INSURANCE BILL Comment:Microscopic was philipp cated and was performed. Urinalysis Reflex [facility] INSURANCE BILL Comment:This specimen will n ot reflex to a Urine Culture. Urine URINE SPECIMEN OBTAINED BY CLEAN CATCH PROCEDURE / Unknown 08/09/2018 11:20 AM LYRIC WRITER 08/09/2018 Narrative Resulting Agency Comment [facility] [address] [facility] [phone] Shannen Thomas MD LAB - URINALYSIS OR DERABLES Performing Organization Address [facility] Co de Phone Number [facility] INSURANCE BILL [address] [place] [address] * TISSUE TRANSGLUTAMINASE AB IGG (08/09/2018 11:20 AM LYRIC WRITER) TTG Antibody IgG <2 0 - 5 U/mL [facility] INSURANCE BILL Comment: Negative 0 - 5 Weak Positive 6 - 9 Positive >9 Blood BLOOD SPECIMEN / Unknown 08/09/2018 11:20 AM LYRIC WRITER 08/09/2018 Narrative Resulting Agency Comment [facility] [address] [facility] [phone] Shannen Thomas MD LAB - CHEMISTRY ORD ERABLES Performing Organization Address [facility] de Phone Number [facility] INSURANCE BILL [address] [place] [address] * TISSUE TRANSGLUTAMINASE AB IGA (08/09/2018 11:20 AM LYRIC WRITER) TTG Antibody IgA <2 0 - 3 U/mL [facility] INSURANCE BILL Comment: Negative 0 - 3 Weak Positive 4 - 10 Positive >10 . Tissue Transglutaminase (tTG) has been identified as the endomysial antigen. Studies have demonstr- ated that endomysial IgA antibodies have over 99% specificity for gluten sensitive enteropathy. Blood BLOOD SPECIMEN / Unknown 08/09/2018 11:20 AM LYRIC WRITER 08/09/2018 Narrative Resulting Agency Comment [facility] [address] [facility] [phone] Shannen Thomas MD LAB - SEROLOGY ORDE RABLES Performing Organization Address [facility] Co de Phone Number [facility] INSURANCE BILL [address] [place] [address] * SHERMAN (SM) ANTIBODY SUZANNE (08/09/2018 11:20 AM LYRIC WRITER) Sherman (SUZANNE) Antibody <0.2 0.0 - 0.9 AI [facility] INSURANCE BILL Blood BLOOD SPECIMEN / Unknown 08/09/2018 11:20 AM LYRIC WRITER 08/09/2018 Narrative Resulting Agency Comment [facility] [address] [facility] [phone] Shannen Thomas MD LAB - CHEMISTRY ORD ERABLES [facility] INSURANCE BILL [address] [place] [address] * MACHINE REBUILDER ANTIBODY (08/09/2018 11:20 AM LYRIC WRITER) MACHINE REBUILDER Antibody <0.2 0.0 - 0.9 AI [facility] INSURANCE BILL Blood BLOOD SPECIMEN / Unknown 08/09/2018 11:20 AM LYRIC WRITER 08/09/2018 Narrative Resulting Agency Comment [facility] [address] [facility] [phone] Shannen Thomas MD LAB - CHEMISTRY ORD ERABLES [facility] INSURANCE BILL [address] [place] [address] * RHEUMATOID FACTOR BLOOD QUANTITATIVE (08/09/2018 11:20 AM LYRIC WRITER) Rheumatoid Factor <10.0 0.0 - 13.9 IU/mL [facility] INSURANCE BILL Blood BLOOD SPECIMEN / Unknown 08/09/2018 11:20 AM LYRIC WRITER 08/09/2018 Narrative Resulting Agency Comment [facility] [address] [facility] [phone] Shannen Thomas MD LAB - CHEMISTRY ORD ERABLES [facility] INSURANCE BILL [address] [place] [address] * SS-A/SS-B (SJOGRENS) ANTIBODY PANEL (08/09/2018 11:20 AM LYRIC WRITER) Sjogren's Antibodies (SSA) <0.2 0.0 - 0.9 AI [facility] INSURANCE BILL Sjogren's Antibodies (SSB) <0.2 0.0 - 0.9 AI [facility] INSURANCE BILL Blood BLOOD SPECIMEN / Unknown 08/09/2018 11:20 AM LYRIC WRITER 08/09/2018 Narrative Resulting Agency Comment [facility] [address] [facility] [phone] Shannen Thomas MD LAB - CHEMISTRY ORD ERABLES [facility] INSURANCE BILL [address] [place] [address] * THYROID PEROXIDASE ANTIBODY (08/09/2018 11:20 AM LYRIC WRITER) Thyroid Peroxidase TPO Antibody 15 0 - 34 IU/mL [facility] INSURANCE BILL Blood BLOOD SPECIMEN / Unknown 08/09/2018 11:20 AM LYRIC WRITER 08/09/2018 Narrative Resulting Agency Comment [facility] [address] [facility] [phone] Shannen Thomas MD LAB - CHEMISTRY ORD ERABLES Performing Organization Address [facility] Co de Phone Number [facility] INSURANCE BILL [address] [place] [address] * THYROGLOBULIN ANTIBODY (08/09/2018 11:20 AM LYRIC WRITER) Thyroglobulin Antibody <1.0 0.0 - 0.9 IU/mL [facility] INSURANCE BILL Comment:Thyroglobulin Antibo dy measured by [employer] Blood BLOOD SPECIMEN / Unknown 08/09/2018 11:20 AM LYRIC WRITER 08/09/2018 Narrative Resulting Agency Comment [facility] [address] [facility] [phone] Shannen Thomas MD LAB - CHEMISTRY ORD ERABLES [facility] INSURANCE BILL [address] [place] [address] * HISTONE ANTIBODY (08/09/2018 11:20 AM LYRIC WRITER) Anti-Histone Antibody 0.4 0.0 - 0.9 Units [facility] INSURANCE BILL Comment: Negative <1.0 Weak Positive 1.0 - 1.5 Moderate Positive 1.6 - 2.5 Strong Positive >2.5 Blood BLOOD SPECIMEN / Unknown 08/09/2018 11:20 AM LYRIC WRITER 08/09/2018 Narrative Resulting Agency Comment [address] [phone] Shannen Thomas MD LAB - CHEMISTRY ORD ERABLES [facility] INSURANCE BILL [address] [place] [address] * COMPLEMENT TOTAL (08/09/2018 11:20 AM LYRIC WRITER) Complement Total CH50 >60 >41 U/mL [facility] INSURANCE BILL Blood BLOOD SPECIMEN / Unknown 08/09/2018 11:20 AM LYRIC WRITER 08/09/2018 Narrative Resulting Agency Comment [facility] [address] [facility] [phone] Shannen Thomas MD LAB - CHEMISTRY ORD ERABLES Performing Organization Address [facility] Co de Phone Number [facility] INSURANCE BILL [address] [place] [address] * HEPATITIS C ANTIBODY (08/09/2018 11:20 AM LYRIC WRITER) Hepatitis C Antibody <0.1 0.0 - 0.9 s/co ratio [facility] INSURANCE BILL Comment: Negative: < 0.8 Indeterminate: 0.8 - 0.9 Positive: > 0.9 . The CDC recommends that a positive HCV antibody result be followed up with a HCV Nucleic Acid Amplification test (060302). Blood BLOOD SPECIMEN / Unknown 08/09/2018 11:20 AM LYRIC WRITER 08/09/2018 Narrative Resulting Agency Comment [facility] [address] [facility] [phone] Shannen Thomas MD LAB - CHEMISTRY ORD ERABLES [facility] INSURANCE BILL [address] [place] [address] * (ABNORMAL) MAGALY STAINING PATTERNS REFLEXED (08/09/2018 11:19 AM LYRIC WRITER) Homogeneous Pattern 1:160(H) [facility] INSURANCE BILL Nucleolar Pattern NOT NEEDED [facility] INSURANCE BILL Comment:Ancillary determined the test is not needed Speckled Pattern NOT NEEDED [facility] INSURANCE BILL Comment:Ancillary determined the test is not needed Centromere Pattern NOT NEEDED [facility] INSURANCE BILL Comment:Ancillary determined the test is not needed Spindle Apparatus Pattern NOT NEEDED [facility] INSURANCE BILL Comment:Ancillary determined the test is not needed Nuclear Membrane Pattern NOT NEEDED [facility] INSURANCE BILL Comment:Ancillary determined the test is not needed Midbody Pattern NOT NEEDED [facility] INSURANCE BILL Comment:Ancillary determined the test is not needed Nuclear Dot Pattern NOT NEEDED [facility] INSURANCE BILL Comment:Ancillary determined the test is not needed PCNA Pattern NOT NEEDED [facility] INSURANCE BILL Comment:Ancillary determined the test is not needed Centriole Pattern NOT NEEDED [facility] INSURANCE BILL Comment:Ancillary determined the test is not needed Note [facility] INSURANCE BILL Comment: A positive ALBARO result may occur in healthy individuals (low titer) or be associated with a variety of diseases. See interpretation chart which is not all inclusive: . Pattern Antigen Detected Suggested Disease Association Homogeneous DNA(ds,ss), SLE - High titers Nucleosomes, Histones Drug-induced SLE Speckled Sm, MACHINE REBUILDER, SCL-70, SLE,MCTD,PSS (diffuse form), SS-A/SS-B Sjogrens Nucleolar SCL-70, PM-1/SCL High titers Scleroderma, PM/DM Centromere Centromere PSS (limited form) w/Crest syndrome variable Nuclear Dot [id number] Primary Biliary Cirrhosis Nuclear GP210, Primary Biliary Cirrhosis Membrane antonio A,B,C 08/09/2018 11:1 9 AM LYRIC WRITER 08/09/2018 Narrative Resulting Agency Comment [facility] [address] [facility] [phone] Shannen Thomas MD LAB - PATHOLOGY/CYT OLOGY ORDERABLES [facility] [address] [place] [address] * XR FOOT RIGHT 2VW (12/26/2017 1:35 PM CDT) Anatomical Region Laterality Modality Ankle / Foot Radiographic Sabina ging 12/26/2017 2:46 PM CDT Impressions 12/26/2017 2:53 PM CDT Impression: No radiographic evidence of arthritis in the right or left hands, wrists, knees, or feet. This report was electronically signed by RENE KOHLER MD on 12/26/2017 2:53 PM . Narrative 12/26/2017 2:53 PM CDT Exam: 1.XR HAND RIGHT 2VW, 2.XR FOOT RIGHT 2VW, 3.XR FOOT LEFT 2VW, 4.XR WRIST RIGHT 2VW, 5.XR WRIST LEFT 2VW, 6.XR HAND LEFT 2VW, 7.XR KNEE RIGHT 2VW 8.XR KNEE LEFT 2VW History: Pain in joint, multiple sites Comparison: None. Findings: Right hand: No fracture or dislocation is present. The joint spaces are normal. No erosions are seen. Bone density appears normal. The soft tissues are normal. Right wrist: No fracture or dislocation is present. The joint spaces are normal. No erosions are seen. Bone density appears normal. The soft tissues are normal. A radiopaque bracelet is seen around the distal forearm/wrist. Left hand: No fracture or dislocation is present. The joint spaces are normal. No erosions are seen. Bone density appears normal. The soft tissues are normal. Left wrist: No fracture or dislocation is present. The joint spaces are normal. No erosions are seen. Bone density appears normal. The soft tissues are normal. Right knee: No acute fracture or dislocation is present. No erosions are seen. The joint spaces are normal. There is no effusion. Left knee: No acute fracture or dislocation is present. No erosions are seen. The joint spaces are normal. There is no effusion. Right foot: No fracture or dislocation is present. The joint spaces are normal. No erosions are seen. Bone density appears normal. The soft tissues are normal. Left foot: No fracture or dislocation is present. The joint spaces are normal. No erosions are seen. Bone density appears normal. The soft tissues are normal. Procedure Note Rene Kohler MD - 12/26/2017 Exam: 1.XR HAND RIGHT 2VW, 2.XR FOOT RIGHT 2VW, 3.XR FOOT LEFT 2VW, 4.XR WRIST RIGHT 2VW, 5.XR WRIST LEFT 2VW, 6.XR HAND LEFT 2VW, 7.XR KNEE RIGHT 2VW 8.XR KNEE LEFT 2VW History: Pain in joint, multiple sites Comparison: None. Findings: Right hand: No fracture or dislocation is present. The joint spaces are normal. No erosions are seen. Bone density appears normal. The soft tissues are normal. Right wrist: No fracture or dislocation is present. The joint spaces are normal. No erosions are seen. Bone density appears normal. The soft tissues are normal. A radiopaque bracelet is seen around the distal forearm/wrist. Left hand: No fracture or dislocation is present. The joint spaces are normal. No erosions are seen. Bone density appears normal. The soft tissues are normal. Left wrist: No fracture or dislocation is present. The joint spaces are normal. No erosions are seen. Bone density appears normal. The soft tissues are normal. Right knee: No acute fracture or dislocation is present. No erosions are seen. The joint spaces are normal. There is no effusion. Left knee: No acute fracture or dislocation is present. No erosions are seen. The joint spaces are normal. There is no effusion. Right foot: No fracture or dislocation is present. The joint spaces are normal. No erosions are seen. Bone density appears normal. The soft tissues are normal. Left foot: No fracture or dislocation is present. The joint spaces are normal. No erosions are seen. Bone density appears normal. The soft tissues are normal. Impression: No radiographic evidence of arthritis in the right or left hands,wrists, knees, or feet. This report was electronically signed by RENE KOHLER MD on12/26/2017 2:53 PM . [place] [facility] [employer] IMAGING ORDERABLES * XR FOOT LEFT 2VW (12/26/2017 1:35 PM CDT) Anatomical Region Laterality Modality Ankle / Foot Radiographic Sabina ging 12/26/2017 2:46 PM CDT Impressions 12/26/2017 2:53 PM CDT Impression: No radiographic evidence of arthritis in the right or left hands, wrists, knees, or feet. This report was electronically signed by RENE KOHLER MD on 12/26/2017 2:53 PM . Narrative 12/26/2017 2:53 PM CDT Exam: 1.XR HAND RIGHT 2VW, 2.XR FOOT RIGHT 2VW, 3.XR FOOT LEFT 2VW, 4.XR WRIST RIGHT 2VW, 5.XR WRIST LEFT 2VW, 6.XR HAND LEFT 2VW, 7.XR KNEE RIGHT 2VW 8.XR KNEE LEFT 2VW History: Pain in joint, multiple sites Comparison: None. Findings: Right hand: No fracture or dislocation is present. The joint spaces are normal. No erosions are seen. Bone density appears normal. The soft tissues are normal. Right wrist: No fracture or dislocation is present. The joint spaces are normal. No erosions are seen. Bone density appears normal. The soft tissues are normal. A radiopaque bracelet is seen around the distal forearm/wrist. Left hand: No fracture or dislocation is present. The joint spaces are normal. No erosions are seen. Bone density appears normal. The soft tissues are normal. Left wrist: No fracture or dislocation is present. The joint spaces are normal. No erosions are seen. Bone density appears normal. The soft tissues are normal. Right knee: No acute fracture or dislocation is present. No erosions are seen. The joint spaces are normal. There is no effusion. Left knee: No acute fracture or dislocation is present. No erosions are seen. The joint spaces are normal. There is no effusion. Right foot: No fracture or dislocation is present. The joint spaces are normal. No erosions are seen. Bone density appears normal. The soft tissues are normal. Left foot: No fracture or dislocation is present. The joint spaces are normal. No erosions are seen. Bone density appears normal. The soft tissues are normal. Procedure Note Rene Kohler MD - 12/26/2017 Exam: 1.XR HAND RIGHT 2VW, 2.XR FOOT RIGHT 2VW, 3.XR FOOT LEFT 2VW, 4.XR WRIST RIGHT 2VW, 5.XR WRIST LEFT 2VW, 6.XR HAND LEFT 2VW, 7.XR KNEE RIGHT 2VW 8.XR KNEE LEFT 2VW History: Pain in joint, multiple sites Comparison: None. Findings: Right hand: No fracture or dislocation is present. The joint spaces are normal. No erosions are seen. Bone density appears normal. The soft tissues are normal. Right wrist: No fracture or dislocation is present. The joint spaces are normal. No erosions are seen. Bone density appears normal. The soft tissues are normal. A radiopaque bracelet is seen around the distal forearm/wrist. Left hand: No fracture or dislocation is present. The joint spaces are normal. No erosions are seen. Bone density appears normal. The soft tissues are normal. Left wrist: No fracture or dislocation is present. The joint spaces are normal. No erosions are seen. Bone density appears normal. The soft tissues are normal. Right knee: No acute fracture or dislocation is present. No erosions are seen. The joint spaces are normal. There is no effusion. Left knee: No acute fracture or dislocation is present. No erosions are seen. The joint spaces are normal. There is no effusion. Right foot: No fracture or dislocation is present. The joint spaces are normal. No erosions are seen. Bone density appears normal. The soft tissues are normal. Left foot: No fracture or dislocation is present. The joint spaces are normal. No erosions are seen. Bone density appears normal. The soft tissues are normal. Impression: No radiographic evidence of arthritis in the right or left hands,wrists, knees, or feet. This report was electronically signed by RENE KOHLER MD on12/26/2017 2:53 PM . Timmy Graves Steve [employer] IMAGING ORDERABLES * XR KNEE RIGHT 2VW OR LESS (12/26/2017 1:35 PM CDT) Anatomical Region Laterality Modality Lower Extremity Radiographic Sabina ging 12/26/2017 2:46 PM CDT Impressions 12/26/2017 2:53 PM CDT Impression: No radiographic evidence of arthritis in the right or left hands, wrists, knees, or feet. This report was electronically signed by RENE KOHLER MD on 12/26/2017 2:53 PM . Narrative 12/26/2017 2:53 PM CDT Exam: 1.XR HAND RIGHT 2VW, 2.XR FOOT RIGHT 2VW, 3.XR FOOT LEFT 2VW, 4.XR WRIST RIGHT 2VW, 5.XR WRIST LEFT 2VW, 6.XR HAND LEFT 2VW, 7.XR KNEE RIGHT 2VW 8.XR KNEE LEFT 2VW History: Pain in joint, multiple sites Comparison: None. Findings: Right hand: No fracture or dislocation is present. The joint spaces are normal. No erosions are seen. Bone density appears normal. The soft tissues are normal. Right wrist: No fracture or dislocation is present. The joint spaces are normal. No erosions are seen. Bone density appears normal. The soft tissues are normal. A radiopaque bracelet is seen around the distal forearm/wrist. Left hand: No fracture or dislocation is present. The joint spaces are normal. No erosions are seen. Bone density appears normal. The soft tissues are normal. Left wrist: No fracture or dislocation is present. The joint spaces are normal. No erosions are seen. Bone density appears normal. The soft tissues are normal. Right knee: No acute fracture or dislocation is present. No erosions are seen. The joint spaces are normal. There is no effusion. Left knee: No acute fracture or dislocation is present. No erosions are seen. The joint spaces are normal. There is no effusion. Right foot: No fracture or dislocation is present. The joint spaces are normal. No erosions are seen. Bone density appears normal. The soft tissues are normal. Left foot: No fracture or dislocation is present. The joint spaces are normal. No erosions are seen. Bone density appears normal. The soft tissues are normal. Procedure Note Rene Kolher MD - 12/26/2017 Exam: 1.XR HAND RIGHT 2VW, 2.XR FOOT RIGHT 2VW, 3.XR FOOT LEFT 2VW, 4.XR WRIST RIGHT 2VW, 5.XR WRIST LEFT 2VW, 6.XR HAND LEFT 2VW, 7.XR KNEE RIGHT 2VW 8.XR KNEE LEFT 2VW History: Pain in joint, multiple sites Comparison: None. Findings: Right hand: No fracture or dislocation is present. The joint spaces are normal. No erosions are seen. Bone density appears normal. The soft tissues are normal. Right wrist: No fracture or dislocation is present. The joint spaces are normal. No erosions are seen. Bone density appears normal. The soft tissues are normal. A radiopaque bracelet is seen around the distal forearm/wrist. Left hand: No fracture or dislocation is present. The joint spaces are normal. No erosions are seen. Bone density appears normal. The soft tissues are normal. Left wrist: No fracture or dislocation is present. The joint spaces are normal. No erosions are seen. Bone density appears normal. The soft tissues are normal. Right knee: No acute fracture or dislocation is present. No erosions are seen. The joint spaces are normal. There is no effusion. Left knee: No acute fracture or dislocation is present. No erosions are seen. The joint spaces are normal. There is no effusion. Right foot: No fracture or dislocation is present. The joint spaces are normal. No erosions are seen. Bone density appears normal. The soft tissues are normal. Left foot: No fracture or dislocation is present. The joint spaces are normal. No erosions are seen. Bone density appears normal. The soft tissues are normal. Impression: No radiographic evidence of arthritis in the right or left hands,wrists, knees, or feet. This report was electronically signed by RENE KOHLER MD on12/26/2017 2:53 PM . Timmy Wilson [employer] IMAGING ORDERABLES * XR KNEE LEFT 2VW OR LESS (12/26/2017 1:35 PM CDT) Anatomical Region Laterality Modality Lower Extremity Radiographic Sabina ging 12/26/2017 2:46 PM CDT Impressions 12/26/2017 2:53 PM CDT Impression: No radiographic evidence of arthritis in the right or left hands, wrists, knees, or feet. This report was electronically signed by RENE KOHLER MD on 12/26/2017 2:53 PM . Narrative 12/26/2017 2:53 PM CDT Exam: 1.XR HAND RIGHT 2VW, 2.XR FOOT RIGHT 2VW, 3.XR FOOT LEFT 2VW, 4.XR WRIST RIGHT 2VW, 5.XR WRIST LEFT 2VW, 6.XR HAND LEFT 2VW, 7.XR KNEE RIGHT 2VW 8.XR KNEE LEFT 2VW History: Pain in joint, multiple sites Comparison: None. Findings: Right hand: No fracture or dislocation is present. The joint spaces are normal. No erosions are seen. Bone density appears normal. The soft tissues are normal. Right wrist: No fracture or dislocation is present. The joint spaces are normal. No erosions are seen. Bone density appears normal. The soft tissues are normal. A radiopaque bracelet is seen around the distal forearm/wrist. Left hand: No fracture or dislocation is present. The joint spaces are normal. No erosions are seen. Bone density appears normal. The soft tissues are normal. Left wrist: No fracture or dislocation is present. The joint spaces are normal. No erosions are seen. Bone density appears normal. The soft tissues are normal. Right knee: No acute fracture or dislocation is present. No erosions are seen. The joint spaces are normal. There is no effusion. Left knee: No acute fracture or dislocation is present. No erosions are seen. The joint spaces are normal. There is no effusion. Right foot: No fracture or dislocation is present. The joint spaces are normal. No erosions are seen. Bone density appears normal. The soft tissues are normal. Left foot: No fracture or dislocation is present. The joint spaces are normal. No erosions are seen. Bone density appears normal. The soft tissues are normal. Procedure Note Rene Kohler MD - 12/26/2017 Exam: 1.XR HAND RIGHT 2VW, 2.XR FOOT RIGHT 2VW, 3.XR FOOT LEFT 2VW, 4.XR WRIST RIGHT 2VW, 5.XR WRIST LEFT 2VW, 6.XR HAND LEFT 2VW, 7.XR KNEE RIGHT 2VW 8.XR KNEE LEFT 2VW History: Pain in joint, multiple sites Comparison: None. Findings: Right hand: No fracture or dislocation is present. The joint spaces are normal. No erosions are seen. Bone density appears normal. The soft tissues are normal. Right wrist: No fracture or dislocation is present. The joint spaces are normal. No erosions are seen. Bone density appears normal. The soft tissues are normal. A radiopaque bracelet is seen around the distal forearm/wrist. Left hand: No fracture or dislocation is present. The joint spaces are normal. No erosions are seen. Bone density appears normal. The soft tissues are normal. Left wrist: No fracture or dislocation is present. The joint spaces are normal. No erosions are seen. Bone density appears normal. The soft tissues are normal. Right knee: No acute fracture or dislocation is present. No erosions are seen. The joint spaces are normal. There is no effusion. Left knee: No acute fracture or dislocation is present. No erosions are seen. The joint spaces are normal. There is no effusion. Right foot: No fracture or dislocation is present. The joint spaces are normal. No erosions are seen. Bone density appears normal. The soft tissues are normal. Left foot: No fracture or dislocation is present. The joint spaces are normal. No erosions are seen. Bone density appears normal. The soft tissues are normal. Impression: No radiographic evidence of arthritis in the right or left hands,wrists, knees, or feet. This report was electronically signed by RENE KOHLER MD on12/26/2017 2:53 PM . Timmy Wilson [employer] IMAGING ORDERABLES * XR HAND RIGHT 2VW (12/26/2017 1:35 PM CDT) Anatomical Region Laterality Modality Wrist / Hand Radiographic Sabina ging 12/26/2017 2:46 PM CDT Impressions 12/26/2017 2:53 PM CDT Impression: No radiographic evidence of arthritis in the right or left hands, wrists, knees, or feet. This report was electronically signed by RENE KOHLER MD on 12/26/2017 2:53 PM . Narrative 12/26/2017 2:53 PM CDT Exam: 1.XR HAND RIGHT 2VW, 2.XR FOOT RIGHT 2VW, 3.XR FOOT LEFT 2VW, 4.XR WRIST RIGHT 2VW, 5.XR WRIST LEFT 2VW, 6.XR HAND LEFT 2VW, 7.XR KNEE RIGHT 2VW 8.XR KNEE LEFT 2VW History: Pain in joint, multiple sites Comparison: None. Findings: Right hand: No fracture or dislocation is present. The joint spaces are normal. No erosions are seen. Bone density appears normal. The soft tissues are normal. Right wrist: No fracture or dislocation is present. The joint spaces are normal. No erosions are seen. Bone density appears normal. The soft tissues are normal. A radiopaque bracelet is seen around the distal forearm/wrist. Left hand: No fracture or dislocation is present. The joint spaces are normal. No erosions are seen. Bone density appears normal. The soft tissues are normal. Left wrist: No fracture or dislocation is present. The joint spaces are normal. No erosions are seen. Bone density appears normal. The soft tissues are normal. Right knee: No acute fracture or dislocation is present. No erosions are seen. The joint spaces are normal. There is no effusion. Left knee: No acute fracture or dislocation is present. No erosions are seen. The joint spaces are normal. There is no effusion. Right foot: No fracture or dislocation is present. The joint spaces are normal. No erosions are seen. Bone density appears normal. The soft tissues are normal. Left foot: No fracture or dislocation is present. The joint spaces are normal. No erosions are seen. Bone density appears normal. The soft tissues are normal. Procedure Note Rene Kohler MD - 12/26/2017 Exam: 1.XR HAND RIGHT 2VW, 2.XR FOOT RIGHT 2VW, 3.XR FOOT LEFT 2VW, 4.XR WRIST RIGHT 2VW, 5.XR WRIST LEFT 2VW, 6.XR HAND LEFT 2VW, 7.XR KNEE RIGHT 2VW 8.XR KNEE LEFT 2VW History: Pain in joint, multiple sites Comparison: None. Findings: Right hand: No fracture or dislocation is present. The joint spaces are normal. No erosions are seen. Bone density appears normal. The soft tissues are normal. Right wrist: No fracture or dislocation is present. The joint spaces are normal. No erosions are seen. Bone density appears normal. The soft tissues are normal. A radiopaque bracelet is seen around the distal forearm/wrist. Left hand: No fracture or dislocation is present. The joint spaces are normal. No erosions are seen. Bone density appears normal. The soft tissues are normal. Left wrist: No fracture or dislocation is present. The joint spaces are normal. No erosions are seen. Bone density appears normal. The soft tissues are normal. Right knee: No acute fracture or dislocation is present. No erosions are seen. The joint spaces are normal. There is no effusion. Left knee: No acute fracture or dislocation is present. No erosions are seen. The joint spaces are normal. There is no effusion. Right foot: No fracture or dislocation is present. The joint spaces are normal. No erosions are seen. Bone density appears normal. The soft tissues are normal. Left foot: No fracture or dislocation is present. The joint spaces are normal. No erosions are seen. Bone density appears normal. The soft tissues are normal. Impression: No radiographic evidence of arthritis in the right or left hands,wrists, knees, or feet. This report was electronically signed by RENE KOHLER MD on12/26/2017 2:53 PM . Timmy Wilson [employer] IMAGING ORDERABLES * XR HAND LEFT 2VW (12/26/2017 1:35 PM CDT) Anatomical Region Laterality Modality Wrist / Hand Radiographic Sabina ging 12/26/2017 2:46 PM CDT Impressions 12/26/2017 2:53 PM CDT Impression: No radiographic evidence of arthritis in the right or left hands, wrists, knees, or feet. This report was electronically signed by RENE KOHLER MD on 12/26/2017 2:53 PM . Narrative 12/26/2017 2:53 PM CDT Exam: 1.XR HAND RIGHT 2VW, 2.XR FOOT RIGHT 2VW, 3.XR FOOT LEFT 2VW, 4.XR WRIST RIGHT 2VW, 5.XR WRIST LEFT 2VW, 6.XR HAND LEFT 2VW, 7.XR KNEE RIGHT 2VW 8.XR KNEE LEFT 2VW History: Pain in joint, multiple sites Comparison: None. Findings: Right hand: No fracture or dislocation is present. The joint spaces are normal. No erosions are seen. Bone density appears normal. The soft tissues are normal. Right wrist: No fracture or dislocation is present. The joint spaces are normal. No erosions are seen. Bone density appears normal. The soft tissues are normal. A radiopaque bracelet is seen around the distal forearm/wrist. Left hand: No fracture or dislocation is present. The joint spaces are normal. No erosions are seen. Bone density appears normal. The soft tissues are normal. Left wrist: No fracture or dislocation is present. The joint spaces are normal. No erosions are seen. Bone density appears normal. The soft tissues are normal. Right knee: No acute fracture or dislocation is present. No erosions are seen. The joint spaces are normal. There is no effusion. Left knee: No acute fracture or dislocation is present. No erosions are seen. The joint spaces are normal. There is no effusion. Right foot: No fracture or dislocation is present. The joint spaces are normal. No erosions are seen. Bone density appears normal. The soft tissues are normal. Left foot: No fracture or dislocation is present. The joint spaces are normal. No erosions are seen. Bone density appears normal. The soft tissues are normal. Procedure Note Rene Kohler MD - 12/26/2017 Exam: 1.XR HAND RIGHT 2VW, 2.XR FOOT RIGHT 2VW, 3.XR FOOT LEFT 2VW, 4.XR WRIST RIGHT 2VW, 5.XR WRIST LEFT 2VW, 6.XR HAND LEFT 2VW, 7.XR KNEE RIGHT 2VW 8.XR KNEE LEFT 2VW History: Pain in joint, multiple sites Comparison: None. Findings: Right hand: No fracture or dislocation is present. The joint spaces are normal. No erosions are seen. Bone density appears normal. The soft tissues are normal. Right wrist: No fracture or dislocation is present. The joint spaces are normal. No erosions are seen. Bone density appears normal. The soft tissues are normal. A radiopaque bracelet is seen around the distal forearm/wrist. Left hand: No fracture or dislocation is present. The joint spaces are normal. No erosions are seen. Bone density appears normal. The soft tissues are normal. Left wrist: No fracture or dislocation is present. The joint spaces are normal. No erosions are seen. Bone density appears normal. The soft tissues are normal. Right knee: No acute fracture or dislocation is present. No erosions are seen. The joint spaces are normal. There is no effusion. Left knee: No acute fracture or dislocation is present. No erosions are seen. The joint spaces are normal. There is no effusion. Right foot: No fracture or dislocation is present. The joint spaces are normal. No erosions are seen. Bone density appears normal. The soft tissues are normal. Left foot: No fracture or dislocation is present. The joint spaces are normal. No erosions are seen. Bone density appears normal. The soft tissues are normal. Impression: No radiographic evidence of arthritis in the right or left hands,wrists, knees, or feet. This report was electronically signed by RENE KOHLER MD on12/26/2017 2:53 PM . Timmy Wilson [employer] IMAGING ORDERABLES * XR WRIST RIGHT 2VW (12/26/2017 1:35 PM CDT) Anatomical Region Laterality Modality Wrist / Hand Radiographic Sabina ging 12/26/2017 2:46 PM CDT Impressions 12/26/2017 2:53 PM CDT Impression: No radiographic evidence of arthritis in the right or left hands, wrists, knees, or feet. This report was electronically signed by REEN KOHLER MD on 12/26/2017 2:53 PM . Narrative 12/26/2017 2:53 PM CDT Exam: 1.XR HAND RIGHT 2VW, 2.XR FOOT RIGHT 2VW, 3.XR FOOT LEFT 2VW, 4.XR WRIST RIGHT 2VW, 5.XR WRIST LEFT 2VW, 6.XR HAND LEFT 2VW, 7.XR KNEE RIGHT 2VW 8.XR KNEE LEFT 2VW History: Pain in joint, multiple sites Comparison: None. Findings: Right hand: No fracture or dislocation is present. The joint spaces are normal. No erosions are seen. Bone density appears normal. The soft tissues are normal. Right wrist: No fracture or dislocation is present. The joint spaces are normal. No erosions are seen. Bone density appears normal. The soft tissues are normal. A radiopaque bracelet is seen around the distal forearm/wrist. Left hand: No fracture or dislocation is present. The joint spaces are normal. No erosions are seen. Bone density appears normal. The soft tissues are normal. Left wrist: No fracture or dislocation is present. The joint spaces are normal. No erosions are seen. Bone density appears normal. The soft tissues are normal. Right knee: No acute fracture or dislocation is present. No erosions are seen. The joint spaces are normal. There is no effusion. Left knee: No acute fracture or dislocation is present. No erosions are seen. The joint spaces are normal. There is no effusion. Right foot: No fracture or dislocation is present. The joint spaces are normal. No erosions are seen. Bone density appears normal. The soft tissues are normal. Left foot: No fracture or dislocation is present. The joint spaces are normal. No erosions are seen. Bone density appears normal. The soft tissues are normal. Procedure Note Rene Kohler MD - 12/26/2017 Exam: 1.XR HAND RIGHT 2VW, 2.XR FOOT RIGHT 2VW, 3.XR FOOT LEFT 2VW, 4.XR WRIST RIGHT 2VW, 5.XR WRIST LEFT 2VW, 6.XR HAND LEFT 2VW, 7.XR KNEE RIGHT 2VW 8.XR KNEE LEFT 2VW History: Pain in joint, multiple sites Comparison: None. Findings: Right hand: No fracture or dislocation is present. The joint spaces are normal. No erosions are seen. Bone density appears normal. The soft tissues are normal. Right wrist: No fracture or dislocation is present. The joint spaces are normal. No erosions are seen. Bone density appears normal. The soft tissues are normal. A radiopaque bracelet is seen around the distal forearm/wrist. Left hand: No fracture or dislocation is present. The joint spaces are normal. No erosions are seen. Bone density appears normal. The soft tissues are normal. Left wrist: No fracture or dislocation is present. The joint spaces are normal. No erosions are seen. Bone density appears normal. The soft tissues are normal. Right knee: No acute fracture or dislocation is present. No erosions are seen. The joint spaces are normal. There is no effusion. Left knee: No acute fracture or dislocation is present. No erosions are seen. The joint spaces are normal. There is no effusion. Right foot: No fracture or dislocation is present. The joint spaces are normal. No erosions are seen. Bone density appears normal. The soft tissues are normal. Left foot: No fracture or dislocation is present. The joint spaces are normal. No erosions are seen. Bone density appears normal. The soft tissues are normal. Impression: No radiographic evidence of arthritis in the right or left hands,wrists, knees, or feet. This report was electronically signed by RENE KOHLER MD on12/26/2017 2:53 PM . Timmy Wilson TELEVISION NEWS PRODUCER-PENS AND PENCILS DIPPER DIAGNOSTI C IMAGING ORDERABLES * XR WRIST LEFT 2VW (12/26/2017 1:35 PM CDT) Anatomical Region Laterality Modality Wrist / Hand Radiographic Sabina ging 12/26/2017 2:46 PM CDT Impressions 12/26/2017 2:53 PM CDT Impression: No radiographic evidence of arthritis in the right or left hands, wrists, knees, or feet. This report was electronically signed by RENE KOHLER MD on 12/26/2017 2:53 PM . Narrative 12/26/2017 2:53 PM CDT Exam: 1.XR HAND RIGHT 2VW, 2.XR FOOT RIGHT 2VW, 3.XR FOOT LEFT 2VW, 4.XR WRIST RIGHT 2VW, 5.XR WRIST LEFT 2VW, 6.XR HAND LEFT 2VW, 7.XR KNEE RIGHT 2VW 8.XR KNEE LEFT 2VW History: Pain in joint, multiple sites Comparison: None. Findings: Right hand: No fracture or dislocation is present. The joint spaces are normal. No erosions are seen. Bone density appears normal. The soft tissues are normal. Right wrist: No fracture or dislocation is present. The joint spaces are normal. No erosions are seen. Bone density appears normal. The soft tissues are normal. A radiopaque bracelet is seen around the distal forearm/wrist. Left hand: No fracture or dislocation is present. The joint spaces are normal. No erosions are seen. Bone density appears normal. The soft tissues are normal. Left wrist: No fracture or dislocation is present. The joint spaces are normal. No erosions are seen. Bone density appears normal. The soft tissues are normal. Right knee: No acute fracture or dislocation is present. No erosions are seen. The joint spaces are normal. There is no effusion. Left knee: No acute fracture or dislocation is present. No erosions are seen. The joint spaces are normal. There is no effusion. Right foot: No fracture or dislocation is present. The joint spaces are normal. No erosions are seen. Bone density appears normal. The soft tissues are normal. Left foot: No fracture or dislocation is present. The joint spaces are normal. No erosions are seen. Bone density appears normal. The soft tissues are normal. Procedure Note Rene Kohler MD - 12/26/2017 Exam: 1.XR HAND RIGHT 2VW, 2.XR FOOT RIGHT 2VW, 3.XR FOOT LEFT 2VW, 4.XR WRIST RIGHT 2VW, 5.XR WRIST LEFT 2VW, 6.XR HAND LEFT 2VW, 7.XR KNEE RIGHT 2VW 8.XR KNEE LEFT 2VW History: Pain in joint, multiple sites Comparison: None. Findings: Right hand: No fracture or dislocation is present. The joint spaces are normal. No erosions are seen. Bone density appears normal. The soft tissues are normal. Right wrist: No fracture or dislocation is present. The joint spaces are normal. No erosions are seen. Bone density appears normal. The soft tissues are normal. A radiopaque bracelet is seen around the distal forearm/wrist. Left hand: No fracture or dislocation is present. The joint spaces are normal. No erosions are seen. Bone density appears normal. The soft tissues are normal. Left wrist: No fracture or dislocation is present. The joint spaces are normal. No erosions are seen. Bone density appears normal. The soft tissues are normal. Right knee: No acute fracture or dislocation is present. No erosions are seen. The joint spaces are normal. There is no effusion. Left knee: No acute fracture or dislocation is present. No erosions are seen. The joint spaces are normal. There is no effusion. Right foot: No fracture or dislocation is present. The joint spaces are normal. No erosions are seen. Bone density appears normal. The soft tissues are normal. Left foot: No fracture or dislocation is present. The joint spaces are normal. No erosions are seen. Bone density appears normal. The soft tissues are normal. Impression: No radiographic evidence of arthritis in the right or left hands,wrists, knees, or feet. This report was electronically signed by RENE KOHLER MD on12/26/2017 2:53 PM . Timmy Wilson APRN-KATIE DIAGNOSTI C IMAGING ORDERABLES Care Teams Appliance Counselor Relationship Specialty Start Date End Date Timmy Wilson APRN-CNP [address] [place] [phone] PCP - General Nurse Practitioner 12/26/17
--- OUTSIDE RECORDS SUMMARY | 2024-08-14 18:40 | XMS_ITS | Clinical Summary ---
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 Gender Identity Not on file Sexual Orientation Not on file Plan of Treatment Health Maintenance Due Date Last Done Comments Hepatitis C Virus (HCV) Screening 1988 TdaP Immunization 1988 Hepatitis B Immunization (1 of 3 - 19+ 3-dose series) 02/16/2007 Pap Smear 02/16/2009 Cervical Cancer Screening (CCS) 02/16/2018 HPV/Cotest 02/16/2018 Influenza Immunization (#1) 2024 SARS-COV-2 Immunization ( season) 2024 Respiratory Syncytial Virus (RSV) Immunization (Adult) (1 - 1-dose 75+ series) 02/16/2063 Meningococcal Immunization (ACWY) Aged Out No longer eligible based on patient's age to complete this topic Pneumococcal Immunization Combined Aged Out No longer eligible based on patient's age to complete this topic Rotavirus Immunization Aged Out No lo nger eligible based on patient's age to complete this topic
--- OUTSIDE RECORDS SUMMARY | 2024-08-14 18:40 | XMS_ITS | Clinical Summary ---
Author Organization [facility] Address [address] [place] [address] Care Team Providers Care Snow Maker Name Role Phone Timmy Wilson SUPERVISOR VENEER-DISPATCHER TOW TRUCK Primary Care Pro vider Source Comments [facility],non-owned Affiliates and Associated Physician Practices is amultiple site organization consisting of ambulatory clinics and hospital sitesin [place], [place], [place] and [place]. This disclosure is being madepursuant to the Care Everywhere program and may not contain all information available regarding this patient. Last updated 18.[facility] Allergies No known active allergies Medications * Be aware that medications may not be up to date on this document. Alwaysverify current medications with the patient. Medication Sig Dispensed Refills Start Date End Date Status etonogestrel (NEXPLANON) 68 MG implant 68 mg by Subdermal route as directed Active hydroxychloroquine (PLAQUENIL) 200 MG tabletIndications:p ositive ALBARO/ malar rash Take 1 tablet by mouth 2 times daily Reasons: positive ALBARO/ malar rash 60 tablet 2 10/04/2018 Active Additional Information Patient not taking.Reported on 06/25/2020 meloxicam (MOBIC) 15 MG tablet Take 1 tablet by mouth once daily 30 tablet 1 06/25/2020 Active vitamin D3-cholecalciferol (CHOLECALCIFEROL) 25 MCG (1000 UNITS) tablet Take 1 (one) tablet by mouth once daily 90 tablet 1 10/01/2020 Active Active Problems Problem Noted Date Diagnosed Date Positive ALBARO (antinuclear antibody) 08/09/2018 Arthralgia 08/09/2018 Myalgia 08/09/2018 Fatigue 08/09/2018 Family History Medical History Relation Name Comments Diabetes - Type 2 Father Diabetes - Type 2 Maternal Grandmother Thyroid Disease Mother Diabetes - Type 2 Paternal Grandmother Arthritis - Rheumatoid Neg Hx Crohn's Disease Neg Hx Lupus Neg Hx Psoriasis Neg Hx Sjogren's Syndrome Neg Hx Ulcerative Colitis Neg Hx Relation Name Status Comments Father Alive Maternal Grandmother Mother Alive Paternal Grandmother Social History Tobacco Use Types Packs/Day Years [...] 36.1 C (97 F) 06/25/2020 2:41 PM MOBILITY DEVELOPER Respiratory Rate - - Oxygen Saturation 99% 10/04/2018 11:59 AM CDT Inhaled Oxygen Concentration - - Weight 93 kg (205 lb) 06/25/2020 2:41 PM MOBILITY DEVELOPER Height 157.5 cm (5' 2 ) 06/25/2020 2:41 PM MOBILITY DEVELOPER Body Mass Index 37.49 06/25/2020 2:41 PM MOBILITY DEVELOPER Plan of Treatment Health Maintenance Due Date Last Done Comments PAP SMEAR 1990 HIV SCREENING 02/16/2003 DTAP/TDAP/TD VACCINES (1 - Tdap) 02/16/2007 HEPATITIS B VACCINE (1 of 3 - 19+ 3-dose series) 02/16/2007 COVID-19 VACCINE ( - 2023-2 5 season) 2024 INFLUENZA VACCINE (#1) 2024 DEPRESSION SCREENING 07/04/2024 ZOSTER VACCINE (1 of 2) 02/16/2038 HEPATITIS C SCREENING Completed 06/25/2020 , 08/09/2018 HIB VACCINE Aged Out No longer eligi ble based on patient's age to complete this topic HPV VACCINE Aged Out No longer eligi ble based on patient's age to complete this topic MENINGOCOCCAL (Group B) VACCINE Aged Out No longer eligible b ased on patient's age to complete this topic MENINGOCOCCAL VACCINE Aged Out No austen mariola eligible based on patient's age to complete this topic PNEUMOCOCCAL VACCINE Aged Out No long er eligible based on patient's age to complete this topic Procedures Procedure Name Priority Date/Time Associated Diagnosis Comments HEPATITIS C AB SCREEN RFLX NAAT QUANT Routine 06/25/2020 3:50 PM MOBILITY DEVELOPER Positive ALBARO (antinuclear antibody) from Last 3 Months or Most Recently Relevant to Health Maintenance Results * HEPATITIS C AB SCREEN RFLX NAAT QUANT (06/25/2020 3:50 PM MOBILITY DEVELOPER) Hepatitis C Antibody Non-react lakshmi Non-reac tive 06/25/2020 5:52 PM MOBILITY DEVELOPER [facility] Comment:Hepatitis C Antibody screen indicates no serologic evidence of past or current infection with Hepatitis C Virus. Patients with unexplained liver disease who are immunocompromised or suspected of having acute Hepatitis C infection may benefit from Nucleic Acid Test (IVON) for Hepatitis C Viral RNA to confirm Hepatitis C status. Blood BLOOD SPECIMEN / Unknown Lab Venipuncture / Unknown 06/25/2020 3:50 PM MOBILITY DEVELOPER 06/25/2020 5:52 PM MOBILITY DEVELOPER Karina Lazaro MD LAB - CHEMISTRY [facility] [place] Organization Address City/State/ZIP Co de Phone Number [facility] [address] [place] [address], [facility] [phone] from Last 3 Months or Most Recently Relevant to Health Maintenance Care Teams Snow Maker Relationship Specialty Start Date End Date Timmy Wilson APRN-DISPATCHER TOW TRUCK [address] [place] [phone] PCP - General Nurse Practitioner 12/26/17
--- OUTSIDE RECORDS SUMMARY | 2024-08-14 18:40 | XMS_ITS | Referral Summary ---
Author Organization [facility] Address [address] [place] [address] Care Team Providers Care Caregiver Services Home Name Role Phone Timmy Wilson FIRESETTER-FIELD ADJUSTER Primary Care Pro vider Source Comments [facility],non-owned Affiliates and Associated Physician Practices is amultiple site organization consisting of ambulatory clinics and hospital sitesin [place], [place], [place] and [place]. This disclosure is being madepursuant to the Care Everywhere program and may not contain all information available regarding this patient. Last updated 18.[facility] Allergies No known active allergies Medications * [...] 36.1 C (97 F) 06/25/2020 2:41 PM SWORD SWALLOWER Respiratory Rate - - Oxygen Saturation 99% 10/04/2018 11:59 AM CDT Inhaled Oxygen Concentration - - Weight 93 kg (205 lb) 06/25/2020 2:41 PM SWORD SWALLOWER Height 157.5 cm (5' 2 ) 06/25/2020 2:41 PM SWORD SWALLOWER Body Mass Index 37.49 06/25/2020 2:41 PM SWORD SWALLOWER Plan of Treatment Not on file Procedures Procedure Name Priority Date/Time Associated Diagnosis Comments HEPATITIS C AB SCREEN RFLX NAAT QUANT Routine 06/25/2020 3:50 PM SWORD SWALLOWER Positive ALBARO (antinuclear antibody) from Last 3 Months or Most Recently Relevant to Health Maintenance Results * HEPATITIS C AB SCREEN RFLX NAAT QUANT (06/25/2020 3:50 PM SWORD SWALLOWER) Hepatitis C Antibody Non-react lakshmi Non-reac tive 06/25/2020 5:52 PM SWORD SWALLOWER [facility] Comment:Hepatitis C Antibody screen indicates [...] Lab Venipuncture / Unknown 06/25/2020 3:50 PM SWORD SWALLOWER 06/25/2020 5:52 PM SWORD SWALLOWER Karina Lazaro MD LAB - CHEMISTRY [place] Organization Address City/State/ZIP Co de Phone Number [facility] [address] [place] [address], [place] [phone] from Last 3 Months or Most Recently Relevant to Health Maintenance Care Teams Caregiver Services Home Relationship Specialty Start Date End Date Timmy Wilson, ELLE-FIELD ADJUSTER [address] [place] [phone] PCP - General Nurse Practitioner 12/26/17
--- OUTSIDE RECORDS SUMMARY | 2024-08-14 18:40 | XMS_ITS | Data Portability ---
Author Organization [facility] [place] Address [address] [place] [address] Assessment No assessment recorded. Plan of Treatment Reminders Order Date Submit Date Provider Last Modified By Organization Details Last Modified Time Details Appointments None recorded. Lab CBC w/ auto diff 2022 023 [facility] (Lab), [address], [place], [address], 3 05:27:59 CMP, serum or plasma 2022 023 [facility] (Lab), [address], [place], [address], 3 05:28:00 lipid panel, blood 2022 023 [facility] (Lab), [address] [place], [address], 3 05:28:00 TSH, serum or plasma 2022 023 [facility] (Lab), [address], [place], [address], 3 05:28:00 vitamin D, 25-hydroxy , total, serum 2022 023 [facility] (Lab), [address], [place], [address], 3 05:28:01 Referral None recorded. Procedures None recorded. Surgeries None recorded. Imaging US, transvagin al 2019 020 [email or web address] [place], [address], [address], [place], [address], 0 11:48:24 Medication Orders Nexplanon 68 mg subdermal implant 2019 020 INTERFACE [id number], [address], [place], [place], [id number], 0 11:49:41 Nexplanon 68 mg subdermal implant 2022 023 [email or web address] [id number], [address], [place], [place], [id number], 3 12:02:06 Patient TargetsNo targets recorded. Patient InstructionsNo instructions recorded. Reason for Referral None Reported. Results Created Date Observation Date Name Description Value Unit Range Abnormal Flag Note LastModifiedBy Organization Detail LastModifiedTime 05/08/2005/12/2020 pap, LB Pap test thin prep Negati ve for Intrae pithel ial Lesion or Malign nico normal ACCES MARY #: [id number] Sourc e: Cervi audrey/E ndoce rvica l LMP: 2019 Date Taken : 05/08 Speci men Type: ThinP rep Vial Date Repor clare: 2019 Clini audrey Data: Cytot ech: Sri Muro , CT( CP) Date Repor clare: 2019 Speci men Adequ acy: Satis facto ry for evalu ation Endoc ervic al/tr ansfo rmati on zone compo nent prese nt Gener al Categ oriza tion: NEGAT MIR FOR INTRA EPITH ELIAL LESIO N OR MALIG TUNG This speci men has been mónica zed by the ThinP rep Imagi ng Syste m, an inter activ e compu ter syste m which coleen ts the lab in the scree kurt of ThinP rep Pap Test slide s. Follo wing imagi ng, the slide was revie wed by a Cytot elver logis t and/o r Patho logis t. D N A A S S A Y S R E P O R T TEST NAME RESUL TS ----- ---- ----- -- HPV High Risk Fernando alves (TMA) ThinP rep Vial The human papil lomav irus (HPV) High Risk Fernando alves is an FDA-a pprov ed in-vi tro ampli fied nucle ic acid test for the quali tativ e detec tion of E6/E7 viral mRNA. Resul ts shoul d be corre lated with patie nt prese ntati on, histo ry, cervi audrey cytol ogy and other clini audrey and labor atory findi ngs. See https ://MyBuilder/s ites/ defau lt/fi AW- [id number] _002_ 01.pd f for formerly [facility], [facility] infor matio n. Test perfo rmed by [employer] [facility], d/b/a [place] [facility], [address] , [place] [address] , Butch Grier ra, DO, Labor atory [facility]. HPV High Risk *HPV NOT DETEC CLARE (TYPE S 16, 18, 31, 33, 35, 39, 45, 51, 52, 56, 58, 59, 66, 68) *HPV: The human papil lomav irus (HPV) High Risk Fernando alves is an FDA-a pprov ed in-vi tro ampli fied nucle ic acid test for the quali tativ e detec tion of E6/E7 viral mRNA. Resul ts shoul d be corre lated with patie nt prese ntati on, histo ry, cervi audrey cytol ogy and other clini audrey and labor atory findi ngs. See https ://MyBuilder/s ites/ defau lt/fi AW- 11203 _002_ 01.pd f for [facility] infor matio n. Test perfo rmed by [employer] [facility], d/b/a [facility] [facility], [address], [place] [address] , Butch Grier ra, DO, Labor atory Direc tor. End of Repor t Techn ical servi elva provi ded by [facility] iat [employer], d/b/a [facility], [address] [place] [address] Yunior Theodore MD, Labor atory Dire tor. Case revie wed and diagn osis rende red at [facility]ated [facility] [employer], d/b/a [facility], [address] [place] [address] Yunior Theodore MD, Labor atory Dire tor. CONFI DENTI AL Not Available [facility] ([facility]) [address], [place], [address], 05/12/2020 10:32:00 05/08/20 20 05/10/2020 HPV DNA, high- risk HPV high risk NOT DETECT ED normal Not Available [facility] ([facility]) [address], [place], [address], 05/12/2020 10:32:00 05/08/20 20 05/09/2020 shbg (sex hormo ne-bi nding globu lewis), serum sex hormone binding globulin (shbg) 37.1 nmol/ L 24.6-1 22.0 STAGE MALE FEMAL E Tanne r Stage I: 26-18 6 nmol/ L 30-17 3 nmol/ L Tanne r Stage II: 22-16 9 nmol/ L 16-12 7 nmol/ L Tanne r Stage III: 13-10 4 nmol/ L 12-98 nmol/ L Tanne r Stage IV: 11-60 nmol/ L 14-15 1 nmol/ L Tanne r Stage V: 11-71 nmol/ L 23-16 5 nmol/ L Not Available [facility] ([facility] [employer]) [address], [place], [address], 05/19/2020 08:11:35 05/08/20 20 05/09/2020 prola ctin, serum prolactin 7.98 NG/mL 4.79-2 3.30 Not Available [facility] ([facility]) [address] [place] [address] Dr [address], [place], [address], 05/19/2020 08:11:35 05/08/20 20 05/09/2020 proge stero ne, serum progesterone 6.12 NG/mL Proge stero ne Refer ence Range Healt hy women Folli cular phase 0.057 - 0.893 Ovula tion phase 0.121 - 12.0 Lutea l phase 1.83 - 23.9 Postm enopa use <0.05 - 0.126 Healt hy pregn ant women 1st trime ster 11.0 - 44.3 2nd trime ster 25.4 - 83.3 3rd trime ster 58.7 - 214 Not Available [facility] ([facility]) [address] [place] [address] Dr [address], [place], [address], 05/19/2020 08:11:35 05/08/20 20 05/09/2020 lh (lute inizi ng hormo ne), serum luteinizing hormone 6.60 mIU/m L LH Refer ence Range Men: 1.7 - 8.6 Women : Folli cular phase 2.4 - 12.6 Ovula tion phase 14.0 - 95.6 Lutea l phase 1.0 - 11.4 Postm enopa use 7.7 - 58.5 Not Available [facility] [employer]) [address] [place] [address] Dr [address], [place], [address], 05/19/2020 08:11:36 05/08/20 20 05/09/2020 FSH (foll icle- stimu latin g hormo ne), serum FSH 1.67 mIU/m L FSH Refer ence Range Men: 1.5 - 12.4 Women : Folli cular phase 3.5 - 12.5 Ovula tion phase 4.7 - 21.5 Lutea l phase 1.7 - 7.7 Postm enopa use 25.8 - 134.8 Not Available [facility] ([facility]) [address] [place] [address] Dr [address], [place], [address], 05/19/2020 08:11:36 05/08/20 20 05/09/2020 estra diol, serum estradiol 129 pg/mL Estra diol Refer ence Range Healt hy women Folli cular phase 12.4 - 233 Ovula tion phase 41.0 - 398 Lutea l phase 22.3 - 341 Postm enopa use <5 - 138 Healt hy pregn ant women 1st trime ster 154 - 3243 2nd trime ster 1561 - 72528 3rd trime ster 8525 - >3000 0 Not Available [facility]) [address] [place] [address] Dr [address], [place], [address], 05/19/2020 08:11:36 05/08/20 20 05/09/2020 HbA1c (hemo globi n A1c), blood hemoglobin A1C 5.5 % <5.7 The follo wing HbA1c range s recom daysi d by the Ameri can Diabe meena Assoc iatio n (ADA) may be used as an aid in the diagn osis of diabe meena melli tus. HA1c Sugge sted Diagn osis >=6.5 % Diabe tic 5.7% - 6.4% Pre-D iabet ic <5.7% Non-D iabet ic Not Available [facility] ([facility]) [facility], [place], [address], 05/19/2020 08:11:37 05/08/20 20 05/09/2020 estim ated avera ge gluco se estimated average glucose 111 mg/dL [place] ge Gluco se is calcu lated using the equat ion AG = (28.7 x HgbA1 c) - 46.7 based on the guide lines estab lishe d by the ADA. Not Available [facility] ([facility]) [address] [place] [address] Dr [address], [place], [address], 05/19/2020 08:11:37 05/08/20 20 05/09/2020 TSH, serum or plasm a TSH reflex to FT4 0.76 mU/L 0.27-4 .20 Not Available [facility] ([facility]) [address], [place], [address], 05/19/2020 08:11:37 05/08/20 20 05/09/2020 dhea- sulfa te, serum DHEA-sulfate 233 ug/dL 99-340 Not Available [facility]ologists [facility]) [facility] [address], [place], [address], 05/19/2020 08:11:38 05/08/20 20 05/12/2020 testo stero ne, total , serum testosterone , total (female and children) 16.2 NG/dL 10.0-5 2.0 Preme nopau willa 10-52 ng/dL (Grea ter than 18 years ) Postm enopa usal 6-30 ng/dL This test was devel oped and its perfo rmanc e pedro cteri stics were deter mined by [facility] clini audrey labor atori es. It has not been clear ed or appro ricky by the FDA. The labor atory is regul ated under CLIA as quali fied to perfo rm high- compl exity testi ng. This test is used for clini audrey purpo ses and shoul d not be regar ded as inves tigat ional or for resea [facility]. Not Available [facility] ([facility]) [facility] [address], [place], [address], 05/19/2020 08:11:38 05/08/20 20 05/19/2020 17-hy droxy proge stero ne, QN, serum 17-hydroxypr ogesterone, hplc-MS/MS 123.22 NG/dL <=206. 00 INTER PRETI VE INFOR MATIO N for 17-Hy droxy proge stero ne in femal es: Folli cular 15 to 70 ng/dL Lutea l 35 to 290 ng/dL Acces s compl ete set of age- and/o r gende r-spe cific refer ence inter vals for this test in the idemama atory Test Direc tory ([email or web address] lab.c om). Test devel oped and pedro cteri stics deter mined by idemama atori es. See Compl iance State ment B: [email or web address] [email or web address] m/CS Perfo rmed By: idemama atori es [address] [place] [address] Labor atory Direc tor: Kirsten helm MD Not Available [facility] ([facility]) [address] [facility] [address], [place], [address], 05/19/2020 08:11:39 06/05/20 20 06/06/2020 beta- HCG, quant itati ve, serum or plasm a beta-HCG, serum, (quantitativ e) <1 mIU/m L HCG Refer ence Range s: Males : <0.2- 2.6 mIU/m L Nonpr egnan t Femal e: <0.2- 5 mIU/m L Post- menop ausal Femal e: <0.2- 8.3 mIU/m L Alis l Pregn nico: Week 3 hCG Range : 5.8-7 1.2 mIU/m L Week 4 hCG Range : 9.5-7 50 mIU/m L Week 5 hCG Range : 217-7 138 mIU/m L Week 6 hCG Range : 158-3 1795 mIU/m L Week 7 hCG Range : 3697- 22963 3 mIU/m L Week 8 hCG Range : 77942 -1495 71 mIU/m L Week 9 hCG Range : 00345 -1514 10 mIU/m L Week 10 hCG Range : 37743 -1869 77 mIU/m L Week 12 hCG Range : 60558 -2106 12 mIU/m L Week 14 hCG Range : 97944 -6253 0 mIU/m L Week 15 hCG Range : 09247 -7097 1 mIU/m L Week 16 hCG Range : 9040- 51404 mIU/m L Week 17 hCG Range : 8175- 84049 mIU/m L Week 18 hCG Range : 8099- 13766 mIU/m L Not Available [facility] ([facility]) [address], [place], [address], 06/06/2020 05:51:12 06/06/20 20 06/10/2020 surgi audrey patho logy study surgical pathology View Report ACCES MARY #: [id number] Patie nt Name: CHERYL MC Age-S ex-DO B: 30y F [birth year] Proce dure Date: 06/06 Acces mary Date: 2019 Pt Acct# : Repor t Date: 2019 Locat ion: OFFIC E Physi fly( s): Keegan Reveles MD P A T H O L O G Y R E P O R T DIAGN OSIS: Endom etria l biops y: Proli ferat mir endom etriu m with focal helen al break down, negat mir for atypi audrey hyper plasi a or malig tung . Mac taylor M.D. elect stanley lopez rasheeda d 06/10 03:30 PM Gross Descr iptio n: Recei ricky in forma lewis label ed Cheryl Kent ez, EMB is an aggre gate of yusuf and red hemor rhagi c tissu e and mucoi d mater ial measu ring 2.5 x 2.0 x 0.1 cm. The speci men is filte red and submi tted entir sylvia in casse tte 1A, M/1. (SUKIK, AGC,s b21) Micro scopi c Descr iptio n: Micro scopi c evalu ation is perfo rmed. Clini audrey Histo ry: Abnor mal uteri ne and vagin al bleed ing, unspe cifie d (N93. 9) Speci men List: EMB End of Repor t Techn ical servi elva provi ded by [facility] [employer], [employer], d/b/a [facility], [address] [place] [address] Yunior Theodore MD, Labor atorInventic [facility]. Case revie wed and diagn osis rende red at [facility] iated Patho logis [employer], [employer], d/b/a [facility], [address], [place] [address] Ruslan Tran MD, Labor atorInventic [facility]. CONFI DENTI AL Not Available [facility] ([facility]) [address], [place], [address], 06/10/2020 16:32:20 07/19/19 23 07/19/2022 IMAGE GUIDE D PAP AND HPV REGAR DLESS image guided Pap, HPV regardless of Pap result SEE RESULT S BELOW CASE REPOR T: Cytol ogy Gynec ologi audrey Repor t Case: [id number] Autho peter dailey Provi rené: Gissell Aquino, KAEL Colle cted: 07/19 1400 Order ing Locat ion: [place] Patho logy Recei ricky: 07/20 0728 First Scree n: Mago Olivares Speci men: Scree kurt Pap - Image d, Cervi x STATE MENT OF ADEQU ACY: Satis facto ry for evalu ation Trans forma tion zone compo nent prese nt FINAL DIAGN OSIS: Negat mir for Intra epith elial Lesio n or Maritza liz (NIL) . Shift in charan sugge stive of bacte rial vagin osis. Elect stanley vanessa d by Mago Olivares ica on 2022 at 1:28 PM ----- ----- ----- ----- ----- ----- ----- ----- ----- ----- ----- ----- ----- ----- ----- ----- ----- ---- HPV RESUL TS: HPV mRNA E6/E7 : No HPV mRNA Detec clare NOTE: This high risk HPV mRNA assay detec ts fourt een high- risk HPV types (16, 18, 31, 33, 35, 39, 45, 51, 52, 56, 58, 59, 66, 68) witho ut diffe renti ation . COMME NT: Note: This speci men was revie wed by a Cytot echno logis t and/o r Patho logis t (as indic ated in this repor t) after evalu ation using the Thinp rep Imagi ng Syste m. CLINI AUDREY INFOR MATIO N: Menst rual Statu s: LMP (if appli cable ): Clini audrey Histo ry/Pr eviou s Pap: Type of Neopl alber (if appli cable ): Signi fican t Clini audrey Findi ngs: Other Histo ry: Hormo sharon (if appli cable ): PAP EDUCA NIKKY L NOTE: The Pap Test is a scree kurt test with an inher ent false negat mir rate. Liqui d-bas ed sampl ing may decre ase, but will not elimi melissa, false negat mir resul ts. A negat mir resul t does not precl ude the prese nce and/o r devel opmen t of disea se, since the prese nce of abnor mal cells in the sampl e depen ds on the locat ion of the lesio n and sampl ing techn ique. Nicky nued regul ar scree kurt is the best metho d of cance r preve ntion . If repor clare cytol ogic findi ng do not corre late with physi audrey and/o r histo rical findi ngs, furth er inves tigat ion is recom daysi d, as clini jose rey nted. Not Available [facility] (Lab) [address], [place], [address], 07/21/2022 14:30:18 07/21/19 23 07/21/2022 CBC W/DIF F WBC 10.4 10'3/ uL 3.6-10 .2 high Not Available [facility] (Lab) [address], [place], [address], 07/22/2022 05:27:59 07/21/19 23 07/21/2022 CBC W/DIF F RBC 4.95 10'6/ uL (based on docume nted legal sex) 4.10-5 .30 Not Available [facility] (Lab) [address], [place], [address], 07/22/2022 05:27:59 07/21/19 23 07/21/2022 CBC W/DIF F HGB 14.0 g/dL (based on docume nted legal sex) 11.9-1 5.8 Not Available [facility] (Lab) [address], [place], [address], 07/22/2022 05:27:59 07/21/19 23 07/21/2022 CBC W/DIF F HCT 43.8 % (based on docume nted legal sex) 37.4-4 8.3 Not Available [facility] (Lab) [address], [place], [address], 07/22/2022 05:27:59 07/21/19 23 07/21/2022 CBC W/DIF F MCV 88.5 fL 82.0-9 9.0 Not Available [facility] (Lab) [address], [place], [address], 07/22/2022 05:27:59 07/21/19 23 07/21/2022 CBC W/DIF F MCH 28.3 pg 27.0-3 3.0 Not Available [facility] (Lab) [address], [place], [address], 07/22/2022 05:27:59 07/21/19 23 07/21/2022 CBC W/DIF F MCHC 32.0 g/dL 32.0-3 6.0 Not Available [facility] (Lab) [address], [place], [address], 07/22/2022 05:27:59 07/21/19 23 07/21/2022 CBC W/DIF F RDW 12.9 % 11.0-1 5.0 Not Available [facility] (Lab) [address], [place], [address], 07/22/2022 05:27:59 07/21/19 23 07/21/2022 CBC W/DIF F plt 310 10'3/ uL 150-45 0 Not Available [facility] (Lab) [address], [place], [address], 07/22/2022 05:27:59 07/21/19 23 07/21/2022 CBC W/DIF F MPV 9.5 fL 9.8-12 .7 low Not Available [facility] (Lab) [address], [place], [address], 07/22/2022 05:27:59 07/21/19 23 07/21/2022 CBC W/DIF F NRBC's 0.0 % 0 Not Available [facility] (Lab) [address], [place], [address], 07/22/2022 05:27:59 07/21/19 23 07/21/2022 CBC W/DIF F absolute NRBCs 0.0 10'3/ uL 0 Not Available [facility] (Lab) [address], [place], [address], 07/22/2022 05:27:59 07/21/19 23 07/21/2022 CBC W/DIF F neutrophils 66.9 % 37.0-7 2.0 Not Available [facility] (Lab) [address], [place], [address], 07/22/2022 05:27:59 07/21/19 23 07/21/2022 CBC W/DIF F lymphocytes 23.6 % 16.0-4 8.0 Not Available [facility] (Lab) [address], [place], [address], 07/22/2022 05:27:59 07/21/19 23 07/21/2022 CBC W/DIF F monocytes 6.0 % 4.0-14 .0 Not Available [facility] (Lab) [address] [facility], [place], [address], 07/22/2022 05:27:59 07/21/19 23 07/21/2022 CBC W/DIF F eosinophils 2.3 % 0.0-9. 0 Not Available [facility] (Lab) [address], [place], [address], 07/22/2022 05:27:59 07/21/19 23 07/21/2022 CBC W/DIF F basophils 0.9 % 0.0-2. 0 Not Available [facility] (Lab) [address] [facility], [place], [address], 07/22/2022 05:27:59 07/21/19 23 07/21/2022 CBC W/DIF F immature granulocytes 0.3 % no define d refere nce range Not Available [facility] (Lab) [address] [facility], [place], [address], 07/22/2022 05:27:59 07/21/19 23 07/21/2022 CBC W/DIF F absolute neutrophils 6.9 10'3/ uL 1.1-6. 0 high Not Available [facility] (Lab) [address] [facility] [facility], [place], [address], 07/22/2022 05:27:59 07/21/19 23 07/21/2022 CBC W/DIF F absolute lymphocytes 2.5 10'3/ uL 0.7-3. 4 Not Available [facility] (Lab) [address] [place], [address], 07/22/2022 05:27:59 07/21/19 23 07/21/2022 CBC W/DIF F absolute monocytes 0.6 10'3/ uL 0.3-1. 0 Not Available [facility] (Lab) [address] [facility], [place], [address], 07/22/2022 05:27:59 07/21/19 23 07/21/2022 CBC W/DIF F absolute eosinophils 0.2 10'3/ uL 0.0-0. 6 Not Available [facility] (Lab) [address] [facility], [place], [address], 07/22/2022 05:27:59 07/21/19 23 07/21/2022 CBC W/DIF F absolute basophils 0.1 10'3/ uL 0.0-0. 1 Not Available [facility] (Lab) [address] [facility] [facility], [place], [address], 07/22/2022 05:27:59 07/21/19 23 07/21/2022 CBC W/DIF F absolute immature granulocytes 0.0 10'3/ uL 0.00-0 .10 2022 3:12 AM: P indic ates parti al resul ts on a panel have been relea sed. Addit ional resul ts will follo w. 2022 3:12 AM: This resul t has been final verif ied. No addit ional or lenz ed resul ts are expec clare. Not Available [facility] (Lab) [address] [facility] [facility], [place], [address], 07/22/2022 05:27:59 07/21/1907/21/2022 LIPID PANEL ,AMA (LDL- CALC) total cholesterol 176 mg/dL 0-199 Not Available [facility] (Lab) [address], [place], [address], 07/22/2022 05:28:00 07/21/1907/21/2022 LIPID PANEL ,AMA (LDL- CALC) triglyceride s 208 mg/dL 0.00-1 50.00 high NCEP Refer ence Value s for Trigl yceri troy: Alis l: <150 mg/dL Borde rline High: 150 - 199 mg/dL High: 200 - 499 mg/dL Very High: >/= 500 mg/dL Not Available [facility] (Lab) [address], [place], [address], 07/22/2022 05:28:00 07/21/1907/21/2022 LIPID PANEL ,AMA (LDL- CALC) HDL cholesterol 39 mg/dL >40 low Not Available [facility] (Lab) [address], [place], [address], 07/22/2022 05:28:00 07/21/19 23 07/21/2022 LIPID PANEL ,AMA (LDL- CALC) LDL cholesterol 95 mg/dL 0-99 Cutof f value s recom daysi d by the Natjovanny nal Taylor stero l Educa tion Progr am: ERICKSON ABLE: Taylor stero l <200 mg/dL LDL <100 mg/dL BORDE RLINE : Taylor stero l 200-2 39 mg/dL LDL 101-1 59 mg/dL HIGHE R RISK: Taylor stero l >240 mg/dL LDL >160 mg/dL , HDL <40 mg/dL Not Available [facility] (Lab) [address], [place], [address], 07/22/2022 05:28:00 07/21/1907/21/2022 LIPID PANEL ,AMA (LDL- CALC) non-HDL cholesterol 137 mg/dL no refere nce range A reaso nable goal for non-H DL taylor stero l is one that is 30 mg/dL highe r than the LDL taylor stero l goal. Not Available [facility] (Lab) [address], [place], [address], 07/22/2022 05:28:00 07/21/1907/21/2022 LIPID PANEL ,AMA (LDL- CALC) chol/HDL ratio 4.5 . 0.0-5. 0 Not Available [facility] (Lab) [address], [place], [address], 07/22/2022 05:28:00 07/21/19 23 07/21/2022 CMP(C OMPRE HENSI VE METAB OLIC PANEL ) sodium 141 mmol/ L 133-14 6 Not Available [facility] (Lab) [address], [place], [address], 07/22/2022 05:28:00 07/21/19 23 07/21/2022 CMP(C OMPRE HENSI VE METAB OLIC PANEL ) potassium 4.3 mmol/ L 3.5-5. 1 Not Available [facility] (Lab) [address], [place], [address], 07/22/2022 05:28:00 07/21/19 23 07/21/2022 CMP(C OMPRE HENSI VE METAB OLIC PANEL ) chloride 103 mmol/ L 98-107 Not Available [facility] (Lab) [address], [place], [address], 07/22/2022 05:28:00 07/21/19 23 07/21/2022 CMP(C OMPRE HENSI VE METAB OLIC PANEL ) carbon dioxide 28 mmol/ L 21-31 Not Available [facility] (Lab) [address], [place], [address], 07/22/2022 05:28:00 07/21/19 23 07/21/2022 CMP(C OMPRE HENSI VE METAB OLIC PANEL ) anion gap 10 mmol/ L 4-13 Not Available [facility] (Lab) [address], [place], [address], 07/22/2022 05:28:00 07/21/19 23 07/21/2022 CMP(C OMPRE HENSI VE METAB OLIC PANEL ) blood urea nitrogen 11 mg/dL 7-25 Not Available [facility] (Lab) [address], [place], [address], 07/22/2022 05:28:00 07/21/19 23 07/21/2022 CMP(C OMPRE HENSI VE METAB OLIC PANEL ) creatinine 0.67 mg/dL 0.60-1 .30 Not Available [facility] (Lab) [address], [place], [address], 07/22/2022 05:28:00 07/21/19 23 07/21/2022 CMP(C OMPRE HENSI VE METAB OLIC PANEL ) egfrcr (CKD-epi 2020) >90 mL/mi n/1.7 3_m2 >=60 Not Available [facility] (Lab) [address], [place], [address], 07/22/2022 05:28:00 07/21/19 23 07/21/2022 CMP(C OMPRE HENSI VE METAB OLIC PANEL ) calcium 9.5 mg/dL 8.3-10 .5 Not Available [facility] (Lab) [address], [place], [address], 07/22/2022 05:28:00 07/21/19 23 07/21/2022 CMP(C OMPRE HENSI VE METAB OLIC PANEL ) glucose 94 mg/dL 70-100 Not Available [facility] (Lab) [address], [place], [address], 07/22/2022 05:28:00 07/21/19 23 07/21/2022 CMP(C OMPRE HENSI VE METAB OLIC PANEL ) protein, total 7.4 g/dL 6.4-8. 3 Not Available [facility] (Lab) [address], [place], [address], 07/22/2022 05:28:00 07/21/19 23 07/21/2022 CMP(C OMPRE HENSI VE METAB OLIC PANEL ) albumin 4.3 g/dL 3.5-5. 0 Not Available [facility] (Lab) [address], [place], [address], 07/22/2022 05:28:00 07/21/19 23 07/21/2022 CMP(C OMPRE HENSI VE METAB OLIC PANEL ) ALT 26 units /L 9-43 Not Available [facility] (Lab) [address], [place], [address], 07/22/2022 05:28:00 07/21/19 23 07/21/2022 CMP(C OMPRE HENSI VE METAB OLIC PANEL ) alkaline phosphatase 50 units /L 34-104 Not Available [facility] (Lab) [address] [place], [address], 07/22/2022 05:28:00 07/21/19 23 07/21/2022 CMP(C OMPRE HENSI VE METAB OLIC PANEL ) AST 16 units /L 13-39 Not Available [facility] (Lab) [address], [place], [address], 07/22/2022 05:28:00 07/21/19 23 07/21/2022 CMP(C OMPRE HENSI VE METAB OLIC PANEL ) bilirubin, total 0.9 mg/dL 0.2-1. 2 Not Available [facility] (Lab) [address] [place], [address], 07/22/2022 05:28:00 07/21/19 23 07/21/2022 TSH, REFLE X FREE T4 TSH 1.00 uIU/m L 0.30-5 .33 Not Available [facility] (Lab) [address] [place], [address], 07/22/2022 05:28:00 07/21/19 23 07/21/2022 VITAM IN D, 25-OH (TOTA L D2/D3 ) vitamin D, 25-hydroxy, total 18.8 NG/mL 30.0-1 00.[address] [place]ge stive of Defic iency : <20 ng/mL Sugge stive of Insuf ficie ncy: 20-29 ng/mL Sugge stive of Suffi cienc y: 30-10 0 ng/mL Sugge stive of Toxic ity: >150 ng/mL Not Available [facility] (Lab) [address] [place], [address], 07/22/2022 05:28:01 05/23/20 20 US, trans vagin al No observ ation record ed. ed[address], [facility], [place], [address], 05/26/2020 11:42:20 Result Notes None recorded. Procedures Surgical History Date Name Laterality Status Provider Name and Address Organization Details Recorded Time 023 Control Implant Replacement completed Yolanda Contreras [facility]- [address], [place], [address], [facility] 03/25/2023 12:00:01 020 Control Implant Insertion completed Avinash Reveles MD [address], [place], [address], [facility] 06/06/2020 14:11:48 020 Endometrial Biopsy completed Avinash Reveles MD [address], [place], [address], [facility] 06/06/2020 14:12:10 020 endometrial biopsy completed Nela Jones [facility] 07/15/2022 20:34:45 019 Date of Last Pap Smear completed Noemi Gunter [facility] 03/25/2023 11:45:14 016 delivery completed Nela Jones [facility] 07/15/2022 20:34:00 008 delivery completed Nela Jones [facility] 07/15/2022 20:33:53 Other completed Noemi Gunter [facility] 03/25/2023 11:45:24 Caesarean Section completed Noemi helm [facility] 03/25/2023 11:45:24 cholecystectomy completed Fannie Carrera [facility] 05/07/2020 16:34:47 Imaging Results Imaging Date Name Status LastModified by Organization Details LastModified Time 05/23/2020 US, transvaginal completed edwin [address], [place], [address], 05/26/2020 11:42:20 Procedure Notes None recorded. Medical Equipment None Reported. Allergies No known drug allergies Medications Name Sig Start Date Stop Date Status Note LastModified by Organization Details LastModified Time Macrobid 100 mg capsule take 1 capsule by oral route every 12 hours with food, as directed 08/15 completed Prescrib ed Elsewher e: No Locat ion: [facility] odify By: bossman [email or web address] DateTime : 02/27/20 15 03:30:00 PM Not Available Not Available Not Available hydrocort isone 1 % topical cream apply by topical route every day to the affected area(s) 07/19 completed Prescrib ed Elsewher e: No Locat ion: [facility] odify By: dina vicente DateTime : 08/15/19 16 03:15:00 PM Not Available Not Available Not Available Provera 10 mg tablet take 1 tablet by oral route every day 12/25 completed Prescrib ed Elsewher e: No Locat ion: [facility] odify By: bonita laws DateTime : 09/12/19 15 10:00:00 AM Not Available Not Available Not Available ergocalci ferol (vitamin D2) 1,250 mcg (50,000 unit) capsule TAKE 1 CAPSULE BY MOUTH EVERY WEEK 03/25 completed Not Available Not Available Not Available Triveen-D uo DHA 29 mg-1 mg-400 mg oral pack take 2 by Oral route once for 30 days 01/23 completed Prescrib ed Elsewher e: No Locat ion: [facility] odify By: johan [email or web address] DateTime : 12/26/19 15 10:15:00 AM Not Available Not Available Not Available Nexplanon 68 mg subdermal implant Inject 1 implant every day by subcutan eous route. 2022 active Not Available Not Available Not Avai lable ID NOW COVID-19 Test Kit TEST DIRECTED TODAY 07/19 completed Not Available Not Available Not Available Vitals Date Recorded Body height Body mass index (BMI) Body weight Systolic blood pressure Diastolic blood pressure Provider Name and Address Organization Details Last Updated DateTime 07/19/2022 156.21 cm 39.4 kg/m2 67600.58 g 120 mm[Hg] 80 mm[Hg] Katie Riggs [facility] 3 12:49:18 Date Recorded Body height Body mass index (BMI) Body weight Provider Name and Address Organization Details Last Updated DateTime 03/25/2023 156.21 cm 39.8 kg/m2 01999.77 g Noemi Gunter [facility] 03/25/2023 11:45:02 Date Recorded Systolic blood pressure Diastolic blood pressure Provider Name and Address Organization Details Last Updated DateTime 03/25/2023 122 mm[Hg] 80 mm[Hg] Yolanda Contreras, [facility]- [address], [place], [address], [facility] 03/25/2023 11:59:09 Date Recorded Body height Body mass index (BMI) Body weight Systolic blood pressure Diastolic blood pressure Provider Name and Address Organization Details Last Updated DateTime 05/23/2020 156.21 cm 38.3 kg/m2 12273.03 g 120 mm[Hg] 76 mm[Hg] Sridevi [facility] 0 10:55:23 Date Recorded Body height Body mass index (BMI) Body weight Systolic blood pressure Diastolic blood pressure Provider Name and Address Organization Details Last Updated DateTime 06/06/2020 156.21 cm 37.9 kg/m2 25349.84 g 121 mm[Hg] 80 mm[Hg] Sridevi [facility] 0 11:53:26 Social History Question Answer Notes LastModified by Organizat ion Details LastModified Time Tobacco Smoking Status Never Smoker Noemi Gunter [facility] 03/25/2023 11:45:19 What Is Your Level Of Alcohol Consumption? None Information not available 03/25/2023 Are You Blind Or Do You Have Difficulty Seeing? No Information not available 03/25/2023 What Is Your Level Of Caffeine Consumption? Occasional Information not available 03/25/2023 How Much Tobacco Do You Chew? None Information not available 03/25/2023 In The 14 Days Before Symptom Onset, Have You Had Close Contact With A Laboratory-confir med COVID-19 While That Case Was Ill? No Information not available 03/25/2023 In The 14 Days Before Symptom Onset, Have You Had Close Contact With A Person Who Is Under Investigation For COVID-19 While That Person Was Ill? No Information not available 03/25/2023 Have You Been To An Area Known To Be High Risk For COVID-19? No Information not available 03/25/2023 Are You Deaf Or Do You Have Serious Difficulty Hearing? No Information not available 03/25/2023 What Type Of Diet Are You Following? REGULAR Information not available 03/25/2023 What Is The Highest Grade Or Level Of School You Have Completed Or The Highest Degree You Have Received? 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 No Information not available 03/25/2023 Do You Use Protection During Sex? No Information not available 03/25/2023 Do You Use Your Seat Belt Or Car Seat Routinely? Yes Information not available 03/25/2023 Do You Have Smoke And Carbon Monoxide Detectors In Your Home? Yes Information not available 03/25/2023 How Much Tobacco Do You Smoke? No Information not available 03/25/2023 Do You Feel Stressed (tense, Restless, Nervous, Or Anxious, Or Unable To Sleep At Night)? [id number] Information not available 03/25/2023 Do You Use Any Illicit Or Recreational Drugs? No Information not available 03/25/2023 Do You Use Sunscreen Routinely? No Information not available 03/25/2023 Have You Used IV Drugs? No Information not available 03/25/2023 Sex: Unknown Functional Status Question Answer Note LastModified by Organizat ion Details LastModified Time Are you able to walk? YESWOREST Information not available 03/25/2023 What is your exercise level? Occasional walking [email or web address] Information not available 05/08/2020 Mental Status None recorded. Family History Relationship Description Onset Age of this Age Resolved Age Notes LastModified by Organization Details LastModified Time Mother Disorder of thyroid gland [email or web address] Not available 2019 16:33:46 Mother Anemia [email or web address] Not available 16:33:55 Maternal Aunt Disorder of thyroid gland jgumber Not available 2019 16:33:46 Sister Cyst of ovary [email or web address] Not available 2022 11:10:51 Maternal Grandmother Diabetes mellitus jgumber Not available 2019 16:34:33 Paternal Grandmother Diabetes mellitus jgumber Not available 2019 16:34:33 Notes:Maternal aunt: Thyroid disease Maternal grandmother: Diabetes mellitus Mother: Thyroid disease, Anemia Paternal grandmother: Diabetes mellitus Sister: ovarian cyst Medical History Condition Response Allergies (Food, seasonal, environmental ) N Other Y Breast Cancer N Drug/Latex Allergies/Reactions N Blood Transfusion N Dermatologic Disorders N Lung Disease N Defects or Inherited Disease N Breast Problem N Gestational Diabetes N Hematologic disorders N Anesthesia Complications N History of STI N Deep Vein Thrombosis N Polycystic ovary syndrome N Anxiety Disorder N Autoimmune disease Y Arthritis N Infertility N Polyps N Acid Reflux (GERD) N History of abnormal pap N Cancer N Stroke N Varicosities N Neurologic/Epilepsy N Endometriosis N High Cholesterol N Headaches N Fibromyalgia N Kidney Disease N Heart Problems N Kidney or Bladder Problems N Thyroid Problems N GI Problems N Eating Disorder N Anemia N Art (IVF or FET) N Psychiatric Illness N Ovarian Cancer N Diabetes N Pulmonary (TB, Asthma) N Hepatitis/Liver Disease N No Past Medical History N Eczema N Urinary Tract Infection N Abuse/Domestic Violence N Asthma N Trauma/Violence N Depression/ depression N Heart Disease N Pre-Eclampsia N Hypertension N Osteoporosis N Thrombophilias N Gynecological History Statement/Question Response Abnormal Pap N Date of Last Mammogram Date of LMP 02/15/2020 Was last menstrual period normal N STIs/STDs N Duration of Flow (days) 0 Current Control Method Implant Age at First Child 18 Date of control 07/16/2019 Frequency of Cycle (Q days) 0 Sexually Active? Y Implant Date of DEXA bone scan Age of first menstrual cycle 10 Date of Last Pap Smear 11/13/2018 Sexual Problems? N Desired Control Method Implant LMP Approximate Obstetrics History GPAL:G 2 P 0 0 0 2 Type Value Living 2 Total 2 Past Encounters Encounter ID Performer Location Encounter Start Date Encounter Closed Date Diagnosis/Indication Diagnosis SNOMED-CT Code Diagnosis ICD10 Code Diagnosis Note [id number] Gissell Tovar [place] [address] [address] 05/08/2020 09:38:56 05/12/2020 16:11:39 Gynecologic examination 55089768 Z01.419 Take Calcium with Vitamin D 1200mg daily if not receiving in daily diet. It is strongly advised to have an annual flu shot and up can obtain at most pharmacies . If you have not had a TDap shot in the last 10 years you should obtain one as well. Discussed with patient & provided with informatio n regarding Gardisil vaccine to prevent the 4 strains for HPV that cause cervical cancer if under age 26. Encourage safe sexual practices, to use condoms and limit partners if not already in a monogamous relationsh ip. Do monthly self breast exams. Have mammogram yearly or every other year depending on family history. BRCA testing is now available for patients with strong genetic history of female cancer. If interested contact the office. Engage in daily exercise of low impact aerobic exercise 45-60 minutes 4-5 times weekly. Avoid tobacco and illicit drugs as well as using moderation with alcohol intake less than 1-2 8 oz beverages daily. This lifestyle behavior pattern will lead to less health conditions and longer life span. If BMI greater than 25 weight watchers or dietary consult advised. Patient received above instructio ns, and questions have been answered. If you have any questions please call or respond to this email. Patient was made aware of the patient portal and may obtain a paper copy of today's plan if desired. Amenorrhea [id number] N91. 2 Irregular cycles and LMP 8-14. Discussed risk of not shedding lining regularly. Will check labs and ultrasound . Pt will follow up with Dr Reveles to discuss results and options since she does have lupus. Pt verbalized understand ing. Secondary amenorrhea 156 755180 N91.1 [id number] Kely Acuña [place] [address],[place] [address] 05/23/2020 09:46:16 05/23/2020 11:22:40 Abnormal uterine bleeding 1067532099 9100 N93.9 [id number] Avinash Reveles MD [place] [address],[place] [address] 05/23/2020 09:48:22 05/23/2020 11:56:01 Abnormal uterine bleeding 6969095975 9100 N93.9 this patient is a 30-year-ol d female presents for follow-up on abnormal uterine bleeding. Her ultrasound is normal. We discussed abnormal uterine bleeding in great detail. We spent 25 minutes face-to-fa ce. We talked abnormal uterine bleeding, risks, etiology, natural history. Talked about the risk of endometria l cancer. She is interested in Nexplanon for treatment. She also needs an endometria l biopsy. We will perform that at her next visit. [id number] Avinash Reveles MD [place] [address],[place] [address] 06/06/2020 11:31:34 06/06/2020 14:13:31 Abnormal uterine bleeding [id number] 9100 N93.9 endometria l biopsy was performed. A Nexplanon was placed. She tolerated these procedures well. She will follow up in 3 months. [id number] [facility] [address],[facility] [address] 03/25/2023 11:10:39 03/25/2023 12:03:33 Removal of subcutaneous contraceptive [id number] Z30.46 Removal site was cleansed with betadine and 3cc of lidocaine used for anesthesia . Device was removed in normal fashion without difficulty . Steri stips and pressure bandage placed. Insertion of subcutaneous contraceptive 562499236 Z30.9 Patient is here currently on her menses. She was given all the r/b/a of placement of the Nexplanon device and has signed the consent. She is fully aware of all possible side effects of the device and has decided to move forward with placement. Insertion site was cleansed with betadine and 3cc lidocaine used for anesthesia . Device was placed in the left arm per usual fashion w/o complicati on and patient instructed to f/u in one month or earlier if there are any si/sx of infection or hypersensi tivity at the insertion siteRTO x 3mos prn [id number] Gissell Tovar [place] [address] [address] 07/19/2022 12:22:57 07/19/2022 17:43:36 Gynecologic examination [id number] Z01.419 Z11.51 Take Calcium with Vitamin D 1200mg daily if not receiving in daily diet. It is strongly advised to have an annual flu shot and up can obtain at most pharmacies . If you have not had a TDap shot in the last 10 years you should obtain one as well. Discussed with patient & provided with informatio n regarding Gardisil vaccine to prevent the 4 strains for HPV that cause cervical cancer if under age 26. Encourage safe sexual practices, to use condoms and limit partners if not already in a monogamous relationsh ip. Do monthly self breast exams. Have mammogram yearly or every other year depending on family history. BRCA testing is now available for patients with strong genetic history of female cancer. If interested contact the office. Engage in daily exercise of low impact aerobic exercise 45-60 minutes 4-5 times weekly. Avoid tobacco and illicit drugs as well as using moderation with alcohol intake less than 1-2 8 oz beverages daily. This lifestyle behavior pattern will lead to less health conditions and longer life span. If BMI greater than 25 weight watchers or dietary consult advised. Patient received above instructio ns, and questions have been answered. If you have any questions please call or respond to this email. Patient was made aware of the patient portal and may obtain a paper copy of today's plan if desired. Health Concerns Section Related Observation LastModified by Organization Detai ls LastModified Time None Recorded Concern Status LastModified by Organization Details LastModified Time None Recorded Advance Directives Directive None Recorded Payers Encounter Date Sequence Insurance Name Policy Number Policy Drummond Covered Member ID Drummond Member ID Guarantor Name 05/23/2020 1 [facility] PRIOR TO 01/01/2021 (MEDICAID REPLACEMENT - HMO) Chris Momo [id number] Cheryl Barr 05/23/2020 1 [facility] PRIOR TO 01/01/2021 (MEDICAID REPLACEMENT - HMO) Chris Momo [id number] Cheryl Barr 06/06/2020 1 [facility] PRIOR TO 01/01/2021 (MEDICAID REPLACEMENT - HMO) Cherylpatti Barr [id number] Cheryl Barr 07/19/2022 1 [facility] ON OR AFTER 01/01/21 (MEDICAID REPLACEMENT - HMO) Cheryl Momo [id number] Cheryl Barr 03/25/2023 1 [facility] ON OR AFTER 01/01/21 (MEDICAID REPLACEMENT - HMO) Cheryl Barr [id number] Cheryl Barr Notes Date Note Type Note Provider Name and Address Organization Details Recorded Time 05/23/2020 text/html this patient is a 30-year-old female presents for follow-up on abnormal uterine bleeding. Her ultrasound is normal. We discussed abnormal uterine bleeding in great detail. We spent 25 minutes [id number]. We talked abnormal uterine bleeding, risks, etiology, natural history. Talked about the risk of endometrial cancer. She is interested in Nexplanon for treatment. She also needs an endometrial biopsy. We will perform that at her next visit. Avinash Reveles MD [address], [place], [address], [facility] 05/23/2020 11:50:07 06/06/2020 text/html this patient presents for follow-up on abnormal uterine bleeding and possible PCOS. We have agreed to protect her endometrium with a Nexplanon. Hopefully this will resolve her bleeding issues and protect her endometrium. We also agreed to perform endometrial biopsy today. Avinash Reveles MD [address], [place], [address], [facility] 06/06/2020 14:13:29 07/19/2022 text/html Annual GYNReport ed bypatient.Menstrua l cycle:amenorrhea d/t nexplanon Urinary symptoms:No hematuria; No incontinence Vulva:No genital lesion Vagina:Normal vaginal discharge Breast:No breast pain; No breast lump; No nipple discharge Sexual complaints:No sexual complaints; No pain during intercourse; Normal libido Menopausal Symptoms:No menopausal symptoms; Normal vaginal lubrication Psychological symptoms:No depression; No anxiety; No PMDD Gissell Tovar carola, [facility] 07/19/2022 15:50:00 03/25/2023 text/html Here today for nexplanon removal/reinsertio n. Yolanda Contreras, [facility]- [address], [place], [address], [facility] 03/25/2023 12:02:36 OBGyn Episode Ob Episode Information Episode Created Date Number of Fetuses Patient Bloodtype Patient rh Status Prepregnancy Weight lbs Domestic Partner Domestic Partner Phone Father Name Surgical Asst Status 05/08/20 1 CLOSED Fetus Data First Name Last Name Admitted to NICU Weight (g) Sex Living Outcome Pediatric Complications Fetus ID Race Codes Race Delivery Type [phone] 4 F Full Term [id number] Primary Gideon Calculation Initial Gideon Date Initial Exam Date Initial Exam Provider Initial Ultrasound Date Last Menstrual Period Date Ultra Sound Weeks Gestation 0 Eighteen To Twenty Week Gideon Update Ultra Sound Date Fundal Height At Umbil Quickening Date Ultra Sound Latest Weeks Gestation Final Gideon Confirmed By Final Gideon Confirmed Date Final Gideon Date Ultra Sound Latest Days Gestation 0 0 Menstrual History Last Menstrual Date Menses Monthly On Bcp Conception Prior Menses Frequency Hcg Plus Date Menarche Onset Age Delivery Information Delivery Date Delivery Type Labor Anesthesia Weeks Gestation Incision Type Labor Labor Length Hrs Delivered By Post Complications Tubal Sterilization Discharge Date Comments 8 unable t o dialate Discharge Information Feeding Method Contraceptive Method Maternal HG B and HCT Levels Ob Episode Information Episode Created Date Number of Fetuses Patient Bloodtype Patient rh Status Prepregnancy Weight lbs Domestic Partner Domestic Partner Phone Father Name Surgical Asst Status 05/08/20 20 1 CLOSED Fetus Data First Name Last Name Admitted to NICU Weight (g) Sex Living Outcome Pediatric Complications Fetus ID Race Codes Race Delivery Type 3997.05 [id number] F Full Term [id number] Repeat Gideon Calculation Initial Gideon Date Initial Exam Date Initial Exam Provider Initial Ultrasound Date Last Menstrual Period Date Ultra Sound Weeks Gestation 0 Eighteen To Twenty Week Gideon Update Ultra Sound Date Fundal Height At Umbil Quickening Date Ultra Sound Latest Weeks Gestation Final Gideon Confirmed By Final Gideon Confirmed Date Final Gideon Date Ultra Sound Latest Days Gestation 0 0 Menstrual History Last Menstrual Date Menses Monthly On Bcp Conception Prior Menses Frequency Hcg Plus Date Menarche Onset Age Delivery Information Delivery Date Delivery Type Labor Anesthesia Weeks Gestation Incision Type Labor Labor Length Hrs Delivered By Post Complications Tubal Sterilization Discharge Date Comments 6 Discharge Information Feeding Method Contraceptive Method Maternal HG B and HCT Levels
[2024-08-14 19:32] VITALS: BP 144/89; PULSE 88; RESP 15; TEMP 36.6; O2SAT 98
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
--- OUTSIDE RECORDS SUMMARY | 2024-08-14 22:06 | XMS_ITS | Clinical Summary ---
Author Organization [facility] Address [address] [place] [address] Care Team Providers Care Creative Recruiter Name Role Phone Unavailable Primary Care Provider Unavailabl e Social History Tobacco Use Types Packs/Day Years Used Date Smoking Tobacco: Never Assessed Comments Unknown Sex and Gender Information Value Date Recorded Sex Assigned at Not on file Legal Sex Female 9:05 AM [employer] Gender Identity Not on file Sexual Orientation [...]
--- OUTSIDE RECORDS SUMMARY | 2024-08-14 22:06 | XMS_ITS | Patient Health Summary ---
Author Organization [facility] Address [address] [place] [address] Care Team Providers Care Generator Assembler Name Role Phone Timmy Wilson COAL PULVERIZING OPERATOR-DELIVERY TECH Primary Care Pro vider Note from [facility],non-owned Affiliates and Associated Physician Practices is amultiple site organization consisting of ambulatory clinics and hospital sitesin [place], [place], [place] and [place]. This disclosure is being madepursuant to the Care Everywhere program and may not contain all information available regarding this patient. Last updated 18.[facility] Allergies No known active allergies Medications [...] 36.1 C (97 F) 06/25/2020 2:41 PM PRE SCHOOL MANAGER Respiratory Rate - - Oxygen Saturation 99% 10/04/2018 11:59 AM CDT Inhaled Oxygen Concentration - - Weight 93 kg (205 lb) 06/25/2020 2:41 PM PRE SCHOOL MANAGER Height 157.5 cm (5' 2 ) 06/25/2020 2:41 PM PRE SCHOOL MANAGER Body Mass Index 37.49 06/25/2020 2:41 PM PRE SCHOOL MANAGER Procedures * LDH BLOOD(Performed 06/25/2020) Performed for [...] Performed for Positive ALBARO (antinuclear antibody) * SHERMAN/APPRENTICE PAINTER BRUSH (SUZANNE) ANTIBODY IGG(Performed 06/25/2020) Performed for Positive [...] Arthralgia, unspecified joint, Myalgia, Fatigue,unspecified type * APPRENTICE PAINTER BRUSH ANTIBODY(Performed 08/09/2018) Performed for Positive ALBARO (antinuclear [...] SS-A (SJOGREN'S) 52+60 ANTIBODIES (06/25/2020 3:51 PM PRE SCHOOL MANAGER) SS-A 52 Antibody 2 0 - 40 AU/mL 06/28/2020 8:43 AM PRE SCHOOL MANAGER [employer] ([facility]) Comment: INTERPRETIVE INFORMATION: SSA-52 (Ro52) (SUZANNE) [...] 0 - 40 AU/mL 06/28/2020 8:43 AM PRE SCHOOL MANAGER [employer] ([facility]) Comment: REFERENCE INTERVAL: SSA-60 (Ro60) (SUZANNE) Antibody, IgG 29 AU/mL or Less ............. Negative 30 - 40 AU/mL ................ Equivocal 41 AU/mL or Greater .......... Positive Performed By: [facility] [address] [place] [address] Stemming Machine Operator: Kirsten Mccall MD Blood BLOOD SPECIMEN / Unknown Lab Venipuncture / Unknown 06/25/2020 3:51 PM PRE SCHOOL MANAGER 06/25/2020 5:20 PM PRE SCHOOL MANAGER Karina Lazaro MD LAB - CHEMISTRY HAYLEY SILVA [facility] Organization Address City/State/ZIP Co de Phone Number [employer] [facility]) [address] [place] [address], [facility] [[email or web address]] * SHERMAN/APPRENTICE PAINTER BRUSH (SUZANNE) ANTIBODY IGG (06/25/2020 3:51 PM PRE SCHOOL MANAGER) Sherman/APPRENTICE PAINTER BRUSH (SUZANNE) Antibody IgG 3 0 - 40 AU/mL 06/28/2020 8:43 AM PRE SCHOOL MANAGER [employer] ([facility]) Comment: INTERPRETIVE INFORMATION: Sherman/APPRENTICE PAINTER BRUSH (SUZANNE) Antibody, IgG 29 AU/mL or Less ............. Negative 30 - 40 AU/mL ................ Equivocal 41 AU/mL or Greater .......... Positive Sherman/APPRENTICE PAINTER BRUSH antibodies are frequently seen in patients with mixed connective tissue disease (MCTD) and are also associated with other systemic autoimmune rheumatic diseases (SARDs) such as systemic lupus erythematosus (SLE), systemic sclerosis, and myositis. Antibodies targeting the Sherman/APPRENTICE PAINTER BRUSH antigenic complex also recognize Sherman antigens, therefore, the Sherman antibody response must be considered when interpreting these results. Performed By: [facility] [address] [place] [address] Stemming Machine Operator: Kirsten Mccall MD Blood BLOOD SPECIMEN / Unknown Lab Venipuncture / Unknown 06/25/2020 3:51 PM PRE SCHOOL MANAGER 06/25/2020 5:20 PM PRE SCHOOL MANAGER Karina Lazaro MD LAB - CHEMISTRY HAYLEY SILVA [facility] Organization Address City/State/ZIP Co de Phone Number [facility] [employer] [facility]) [address] [place] [address] * QUANTIFERON-TB GOLD PLUS 4-TUBE (06/25/2020 3:51 PM PRE SCHOOL MANAGER) [facility] QuantiFERON NIL 0.02 IU/mL 0 11:53 PM PRE SCHOOL MANAGER [employer] ([facility]) Comment: Performed By: [facility] [address] [place] [address] Stemming Machine Operator: Kirsten Mccall MD QuantiFERON TB Gold Plus Negative Negative 06/27/2020 11:53 PM PRE SCHOOL MANAGER [employer] [facility]) Comment: Interpretive Data: Quantiferon TB Gold Plus [...] Mycobacterium tuberculosis Infection --- [place], 2010 (http://www.cdc.gov/mmwr/preview/mmwrhtml/li8184q1.htm), for more information concerning test performance in low-prevalence populations and use in occupational screening. QuantiFERON Plus TB1 Minus NIL 0.08 0.00 - 0.34 IU/mL 06/27/2020 11:53 PM PRE SCHOOL MANAGER [employer] ([facility]) QuantiFERON Plus TB2 Minus NIL 0.03 0.00 - 0.34 IU/mL 06/27/2020 11:53 PM PRE SCHOOL MANAGER [employer] ([facility]) QuantiFERON Mitogen Minus NIL 9.05 IU/mL 06/27/2020 11:53 PM PRE SCHOOL MANAGER [facility] [employer] [facility]) Blood BLOOD SPECIMEN / Unknown Lab Venipuncture / Unknown 06/25/2020 3:51 PM PRE SCHOOL MANAGER 06/25/2020 4:33 PM PRE SCHOOL MANAGER Karina Lazaro MD LAB - CHEMISTRY HAYLEY SILVA [facility] Organization Address City/State/ZIP Co de Phone Number [employer] [facility]) [address] * DNA ANTIBODY DS CRITHIDIA TITER (06/25/2020 3:51 PM PRE SCHOOL MANAGER) [facility] dsDNA Antibody IgG <1:10 <1:10 2019 9:43 AM PRE SCHOOL MANAGER [facility] [employer] ([facility]) Comment: INTERPRETIVE INFORMATION: Double-Stranded DNA (dsDNA) [...] recommendations for testing may be found at http://[email or web address]-[email or web address]/Topics/[email or web address]/[email or web address]/i ndex.html. Performed By: [facility] [address] [place] [address] Stemming Machine Operator: Kirsten Mccall MD Blood BLOOD SPECIMEN / Unknown Lab Venipuncture / Unknown 06/25/2020 3:51 PM PRE SCHOOL MANAGER 06/25/2020 5:21 PM PRE SCHOOL MANAGER Karina Lazaro MD LAB - SEROLOGY ORDER QUINN [facility] [employer] [facility]) [address] [place] [address] * RIBOSOMAL P PROTEIN ANTIBODY (06/25/2020 3:51 PM PRE SCHOOL MANAGER) [facility] Ribosomal P Protein Antibody 2 0 - 40 AU/mL 06/28/2020 8:43 AM PRE SCHOOL MANAGER [facility] [employer] ([facility]) Comment: INTERPRETIVE INFORMATION: Ribosomal P Protein [...] before active phases of psychosis. Performed By: [facility] [address] [place] [address] Stemming Machine Operator: Kirsten Mccall MD Blood BLOOD SPECIMEN / Unknown Lab Venipuncture / Unknown 06/25/2020 3:51 PM PRE SCHOOL MANAGER 06/25/2020 5:21 PM PRE SCHOOL MANAGER Karina Lazaro MD LAB - CHEMISTRY HAYLEY SILVA Performing Organization Address City/[facility] Co de Phone Number [employer] [facility]) [address] * SS-B (SJOGREN'S) ANTIBODY (06/25/2020 3:51 PM PRE SCHOOL MANAGER) SS-B Antibody 0 0 - 40 AU/mL 06/28/2020 8:43 AM PRE SCHOOL MANAGER [employer] ([facility]) Comment: INTERPRETIVE INFORMATION: SSB (La) (SUZANNE) [...] (PSS) also have this antibody. Performed By: [facility] [address] [place] [address] Stemming Machine Operator: Kirsten Mccall MD Blood BLOOD SPECIMEN / Unknown Lab Venipuncture / Unknown 06/25/2020 3:51 PM PRE SCHOOL MANAGER 06/25/2020 5:20 PM PRE SCHOOL MANAGER Karina Lazaro MD LAB - CHEMISTRY HAYLEY SILVA [facility] [employer] ([facility]) [address] * (ABNORMAL) VITAMIN D 25-HYDROXY (06/25/2020 3:51 PM PRE SCHOOL MANAGER) Only the most recent of2 resultswithin the time period is included. Vitamin D, 25 Hydroxy 17.0(L) See comment: ng/mL 06/25/2020 5:19 PM PRE SCHOOL MANAGER [facility] Comment: The recommendations for [...] Lab Venipuncture / Unknown 06/25/2020 3:51 PM PRE SCHOOL MANAGER 06/25/2020 4:34 PM PRE SCHOOL MANAGER Karina Lazaro MD LAB - CHEMISTRY ORDE RABLES [address] [address], [facility] [[email or web address]] [phone] * (ABNORMAL) ERYTHROCYTE SEDIMENTATION RATE (06/25/2020 3:51 PM PRE SCHOOL MANAGER) Only the most recent of2 resultswithin the time period is included. Erythrocyte Sedimentation Rate Westergren 42(H) 0 - 20 MM/HR 06/25/2020 4:57 PM [facility] Blood BLOOD SPECIMEN / Unknown Lab Venipuncture / Unknown 06/25/2020 3:51 PM PRE SCHOOL MANAGER 06/25/2020 4:34 PM PRE SCHOOL MANAGER Karina Lazaro MD LAB - HEMATOLOGY ORD ERABLES Performing Organization Address City/[facility]/ZIP Co de Phone Number [address] [address], [facility] [email or web address]] [phone] * (ABNORMAL) CBC WITH DIFFERENTIAL (06/25/2020 3:51 PM PRE SCHOOL MANAGER) Only the most recent of2 resultswithin the time period is included. WBC 10.1 3.5 - 10.5 10 3/uL 06/25/2020 4:43 PM PRE SCHOOL MANAGER [facility] RBC 4.90 3.90 - 5.00 10 6/uL 06/25/2020 4:43 PM [facility] Hemoglobin 13.7 12.0 - 15.5 g/dL 06/25/2020 4:43 PM [facility] Hematocrit 41.5 35.0 - 45.0 % 06/25/2020 4:43 PM [facility] MCV 84.7 81.0 - 97.0 fL 06/25/2020 4:43 PM [facility] MCH 28.0 28.0 - 34.0 pg 06/25/2020 4:43 PM [facility] MCHC 33.0 32.0 - 36.0 g/dL 06/25/2020 4:43 PM [facility] Platelet Count 337 150 - 400 10 3/uL 06/25/2020 4:43 PM [facility] RDW-SD 39.8 36.0 - 50.0 fL 06/25/2020 4:43 PM [facility] RDW-CV 13.0 11.2 - 14.8 % 06/25/2020 4:43 PM [facility] MPV 9.3 9.3 - 12.8 fL 06/25/2020 4:43 PM [facility] nRBC Absolute 0.00 0 10 3/uL 06/25/2020 4:43 PM [facility] nRBC Auto 0.0 0 /100 WBC 06/25/2020 4:43 PM [facility] Neutrophils % 60.6 35.0 - 70.0 % 06/25/2020 4:43 PM [facility] Lymphocytes % 29.9 19.7 - 55.1 % 06/25/2020 4:43 PM [facility] Monocytes % 6.6 3.0 - 15.0 % 06/25/2020 4:43 PM [facility] Eosinophils % 1.6 0.0 - 6.0 % 06/25/2020 4:43 PM [facility] Basophil % 0.8 0.0 - 1.5 % 06/25/2020 4:43 PM [facility] Neutrophils Absolute 6.1 1.6 - 7.0 10 3/uL 06/25/2020 4:43 PM [facility] Lymphocyte Absolute 3.0(H) 0.8 - 2.9 10 3/uL 06/25/2020 4:43 PM [facility] Monocytes Absolute 0.67(H) 0.14 - 0.66 10 3/uL 06/25/2020 4:43 PM [facility] Eosinophils Absolute 0.16 0.00 - 0.45 10 3/uL 06/25/2020 4:43 PM [facility] Basophils Absolute 0.08(H) 0.00 - 0.06 10 3/uL 06/25/2020 4:43 PM [facility] Immature Granulocytes % 0.5 0.0 - 1.0 % 06/25/2020 4:43 PM [facility] Blood BLOOD SPECIMEN / Unknown Lab Venipuncture / Unknown 06/25/2020 3:51 PM PRE SCHOOL MANAGER 06/25/2020 4:34 PM PRE SCHOOL MANAGER Karina Lazaro MD LAB - HEMATOLOGY ORD ERABLES [address] [address], [facility] [[email or web address]] [phone] * COMPLEMENT C4 (06/25/2020 3:51 PM PRE SCHOOL MANAGER) Only the most recent of2 resultswithin the time period is included. Complement C4 31 15 - 57 mg/dL 06/25/2020 5:09 PM [facility] Blood BLOOD SPECIMEN / Unknown Lab Venipuncture / Unknown 06/25/2020 3:51 PM PRE SCHOOL MANAGER 06/25/2020 4:34 PM PRE SCHOOL MANAGER Karina Lazaro MD LAB - SEROLOGY ORDER QUINN Performing Organization Address City/[facility]/ZIP Co de Phone Number [address] [address], [facility] [[email or web address]] [phone] * (ABNORMAL) COMPREHENSIVE METABOLIC PANEL (06/25/2020 3:51 PM PRE SCHOOL MANAGER) Only the most recent of2 resultswithin the time period is included. BUN 9 7 - 26 mg/dL 06/25/2020 5:09 PM [facility] Creatinine 0.6 0.6 - 1.2 mg/dL 06/25/2020 5:09 PM [facility] Sodium 138 136 - 145 mmol/L 06/25/2020 5:09 PM [facility] Potassium 3.3(L) 3.5 - 4.5 mmol/L 06/25/2020 5:09 PM [facility] Chloride 104 98 - 107 mmol/L 06/25/2020 5:09 PM [facility] CO2 23 22 - 29 mmol/L 06/25/2020 5:09 PM [facility] Glucose 93 70 - 115 mg/dL 06/25/2020 5:09 PM [facility] Calcium 9.1 8.4 - 10.2 mg/dL 06/25/2020 5:09 PM [facility] Protein Total 8.2 6.0 - 8.3 g/dL 06/25/2020 5:09 PM [facility] Albumin 4.2 3.4 - 5.0 g/dL 06/25/2020 5:09 PM [facility] Bilirubin Total 0.6 0.2 - 1.2 mg/dL 06/25/2020 5:09 PM [facility] Alkaline Phosphatase 49 40 - 150 Units/L 06/25/2020 5:09 PM [facility] ALT 45 0 - 55 Units/L 06/25/2020 5:09 PM [facility] AST 24 5 - 34 Units/L 06/25/2020 5:09 PM [facility] Anion Gap 14 8 - 18 06/25/2020 5:09 PM [facility] BUN/Creatinine Ratio 15 7 - 23 06/25/2020 5:09 PM [facility] Osmolality Calculated 284 270 - 300 mOsm/kg 06/25/2020 5:09 PM [facility] Albumin/Globulin Ratio 1.1 1.1 - 2.3 06/25/2020 5:09 PM [facility] eGFR >60 >60 mL/min/1.7 3 m2 06/25/2020 5:09 PM [facility] Blood BLOOD SPECIMEN / Unknown Lab Venipuncture / Unknown 06/25/2020 3:51 PM PRE SCHOOL MANAGER 06/25/2020 4:34 PM [facility] Karina Lazaro MD LAB - CHEMISTRY HAYLEY SILVA [facility] [address] [place] [address], [facility] [[email or web address]] [phone] * LDH BLOOD (06/25/2020 3:51 PM PRE SCHOOL MANAGER) Pathologist [facility] LDH Total 211 125 - 243 Units/L 06/25/2020 5:09 PM PRE SCHOOL MANAGER [facility] Blood BLOOD SPECIMEN / Unknown Lab Venipuncture / Unknown 06/25/2020 3:51 PM PRE SCHOOL MANAGER 06/25/2020 4:34 PM PRE SCHOOL MANAGER Karina Lazaro MD LAB - CHEMISTRY HAYLEY SILVA [address] [address], [place] [phone] * CK BLOOD (06/25/2020 3:51 PM PRE SCHOOL MANAGER) [facility] CK Total 105 30 - 200 Units/L 06/25/2020 5:09 PM PRE SCHOOL MANAGER [facility] Blood BLOOD SPECIMEN / Unknown Lab Venipuncture / Unknown 06/25/2020 3:51 PM PRE SCHOOL MANAGER 06/25/2020 4:34 PM PRE SCHOOL MANAGER Karina Lazaro MD LAB - CHEMISTRY HAYLEY SILVA Performing Organization Address [facility]/ZIP Co de Phone Number [address] [address], [place] [phone] * TSH (06/25/2020 3:51 PM PRE SCHOOL MANAGER) Only the most recent of2 resultswithin the time period is included. [facility] TSH 0.611 0.350 - 4.940 uIU/mL 06/25/2020 5:19 PM PRE SCHOOL MANAGER [facility] Blood BLOOD SPECIMEN / Unknown Lab Venipuncture / Unknown 06/25/2020 3:51 PM PRE SCHOOL MANAGER 06/25/2020 4:34 PM PRE SCHOOL MANAGER Karina Lazaro MD LAB - CHEMISTRY HAYLEY SILVA Performing Organization Address City/[facility]/ZIP Co de Phone Number [address] [address], [place] [phone] * COMPLEMENT C3 (06/25/2020 3:51 PM PRE SCHOOL MANAGER) Only the most recent of2 resultswithin the time period is included. Pathologist [facility] Complement C3 163 82 - 193 mg/dL 06/25/2020 5:09 PM PRE SCHOOL MANAGER [facility] Blood BLOOD SPECIMEN / Unknown Lab Venipuncture / Unknown 06/25/2020 3:51 PM PRE SCHOOL MANAGER 06/25/2020 4:34 PM PRE SCHOOL MANAGER Karina Lazaro MD LAB - CHEMISTRY HAYLEY SILVA Performing Organization Address City/[facility]/ZIP Co de Phone Number [address] [address], [facility] [[email or web address]] [phone] * HEPATITIS C AB SCREEN RFLX NAAT QUANT (06/25/2020 3:50 PM PRE SCHOOL MANAGER) [facility] Hepatitis C Antibody Non-react lakshmi Non-reac tive 06/25/2020 5:52 PM PRE SCHOOL MANAGER [facility] Comment:Hepatitis C Antibody screen indicates no serologic evidence of past or current infection with Hepatitis C Virus. Patients with unexplained liver disease who are immunocompromised or suspected of having acute Hepatitis C infection may benefit from Nucleic Acid Test (IVON) for Hepatitis C Viral RNA to confirm Hepatitis C status. Blood BLOOD SPECIMEN / Unknown Lab Venipuncture / Unknown 06/25/2020 3:50 PM PRE SCHOOL MANAGER 06/25/2020 5:52 PM PRE SCHOOL MANAGER Karina Lazaro MD LAB - CHEMISTRY HAYLEY SILVA Performing Organization Address [facility] Co de Phone Number [address] [address], [facility] [[email or web address]] [phone] * CHROMATIN ANTIBODY (06/25/2020 3:50 PM PRE SCHOOL MANAGER) Only the most recent of2 resultswithin the time period is included. [facility] Chromatin Antibody 3 0 - 19 Units 06/28/2020 9:40 AM PRE SCHOOL MANAGER [employer] ([facility]) Comment: INTERPRETIVE INFORMATION: Chromatin Antibody, IgG 19 Units or less: Negative 20 - 60 Units: Moderate Positive 61 Units or greater: Strong Positive The presence of anti-chromatin antibodies may be useful in the diagnosis of systemic lupus erythematosus (SLE) or drug-induced lupus (DIL) and have been reported to be predictive of lupus nephritis, especially when antibody levels are high. Performed By: [facility] [address] [place] [address] Stemming Machine Operator: Kirsten Mccall MD Blood BLOOD SPECIMEN / Unknown Lab Venipuncture / Unknown 06/25/2020 3:50 PM PRE SCHOOL MANAGER 06/25/2020 5:20 PM PRE SCHOOL MANAGER Karina Lazaro MD LAB - SEROLOGY ORDER QUINN Performing Organization Address City/[facility]/ZIP Co de Phone Number [facility]) [address] [place] [id number] * C-REACTIVE PROTEIN (06/25/2020 3:50 PM PRE SCHOOL MANAGER) Only the most recent of2 resultswithin the time period is included. Pathologist [facility] C-Reactive Protein 0.5 <=0.5 mg/dL 06/25/2020 5:36 PM PRE SCHOOL MANAGER [facility] Blood BLOOD SPECIMEN / Unknown Lab Venipuncture / Unknown 06/25/2020 3:50 PM PRE SCHOOL MANAGER 06/25/2020 5:20 PM PRE SCHOOL MANAGER Karina Lazaro MD LAB - CHEMISTRY ORDE RABLES Performing Organization Address City/[facility]/ZIP Co de Phone Number [address] [address], [facility] [[email or web address]] [phone] * ALBARO BLOOD SCREEN W/REFLEX TITER (06/25/2020 3:50 PM PRE SCHOOL MANAGER) Only the most recent of2 resultswithin the time period is included. Pathologist [facility] ALBARO IgG None Detected None Detected 06/27/2020 11:07 PM PRE SCHOOL MANAGER [facility] ([facility]) Comment: If suspicion of connective tissue disease is strong and ALBARO EIA is negative, consider testing for ALBARO by IFA ([id number]). INTERPRETIVE INFORMATION: Anti-Nuclear Antibodies (ALBARO), IgG by APRYL Antinuclear Antibodies (ALBARO), IgG by APRYL: ALBARO specimens are screened using enzyme-linked immunosorbent assay (APRYL) methodology. All APRYL results reported as Detected are further tested by indirect fluorescent assay (IFA) using HEp-2 substrate with an IgG-specific conjugate. The ALABRO APRYL screen is designed to detect antibodies against dsDNA, histones, SS-A (Ro), SS-B (La), Sherman, Sherman/APPRENTICE PAINTER BRUSH, Scl-70, Re-1, centromeric proteins, other antigens extracted from the HEp-2 cell nucleus. ALBARO APRYL assays have been reported to have lower sensitivities than ALBARO IFA for systemic autoimmune rheumatic diseases (SARD). Negative results do not necessarily rule out SARD. Performed By: [facility] [address] [place] [address] Stemming Machine Operator: Kirsten Mccall MD Blood BLOOD SPECIMEN / Unknown Lab Venipuncture / Unknown 06/25/2020 3:50 PM PRE SCHOOL MANAGER 06/25/2020 5:21 PM PRE SCHOOL MANAGER Karina Lazaro MD LAB - CHEMISTRY HAYLEY SILVA Performing Organization Address [facility] Co de Phone Number [facility] [employer] [facility]) [address] [place] [address] * ALDOLASE (06/25/2020 3:50 PM PRE SCHOOL MANAGER) [facility] Aldolase 6.1 1.5 - 8.1 U/L 06/27/2020 4:20 PM PRE SCHOOL MANAGER [facility] ([facility]) Comment: REFERENCE INTERVAL: Aldolase Access complete set of age- and/or gender-specific reference intervals for this test in the [facility] Laboratory Test Directory ([employer]). Performed By: [facility] [address] [place] [address] Stemming Machine Operator: Kirsten Mccall MD Blood BLOOD SPECIMEN / Unknown Lab Venipuncture / Unknown 06/25/2020 3:50 PM PRE SCHOOL MANAGER 06/25/2020 5:20 PM PRE SCHOOL MANAGER Karina Lazaro MD LAB - CHEMISTRY HAYLEY SILVA Performing Organization Address [facility] Co de Phone Number [facility]) [address] [place] [address] * HEPATITIS B CORE ANTIBODY (06/25/2020 3:50 PM PRE SCHOOL MANAGER) [facility] HBc Antibody Total Non-reacti ve Non-reacti ve 06/25/2020 5:52 PM PRE SCHOOL MANAGER [facility] Blood BLOOD SPECIMEN / Unknown Lab Venipuncture / Unknown 06/25/2020 3:50 PM PRE SCHOOL MANAGER 06/25/2020 5:52 PM PRE SCHOOL MANAGER Karina Lazaro MD LAB - CHEMISTRY HAYLEY SILVA [address] [address], [facility] [[email or web address]] [phone] * HEPATITIS B SURFACE ANTIGEN W RFLX CONFIRMATION (06/25/2020 3:50 PM PRE SCHOOL MANAGER) Hepatitis B Virus Surface Antigen Non-reacti ve Non-reacti ve 06/25/2020 5:52 PM PRE SCHOOL MANAGER [facility] Blood BLOOD SPECIMEN / Unknown Lab Venipuncture / Unknown 06/25/2020 3:50 PM PRE SCHOOL MANAGER 06/25/2020 5:52 PM PRE SCHOOL MANAGER Karina Lazaro MD LAB - CHEMISTRY HAYLEY SILVA Performing Organization Address City/[facility]/ZIP Co de Phone Number [address] [address], [place] [phone] * URINALYSIS MICROSCOPIC ONLY REFLEXED (08/09/2018 11:20 AM PRE SCHOOL MANAGER) WBC UA 0-5 0 - 5 /hpf [...] is not needed 08/09/2018 11:2 0 AM PRE SCHOOL MANAGER 08/09/2018 Narrative Resulting Agency Comment [facility] [address] [facility] [phone] Shannen Thomas MD LAB - URINALYSIS OR DERABLES [facility] INSURANCE BILL [address] [place] [address] * DNA ANTIBODY DS CRITHIDIA IFA (08/09/2018 11:20 AM PRE SCHOOL MANAGER) dsDNA Antibody Screen Crithidia <1:10 titer [facility] INSURANCE BILL Comment: Reference Range: Negative: < 1:10 titer Positive: => 1:10 titer Double-stranded DNA (dsDNA) antibodies of the IgG class are an accepted criterion ([place] [employer]) for the diagnosis of [...] and performance parameters have been validated by [employer] This test has not been approved by the U.S. Food and Drug Administration (FDA); however, US FDA approval is not required for clinical use. It is not intended that clinical diagnosis and patient management decisions be made using these results alone. This test has been validated using serum samples. The instrument tech has not determined the efficacy of this test when performed on CSF, plasma, joint or pleural fluid specimens. The performance characteristics of this test were determined by [employer] Blood BLOOD SPECIMEN / Unknown 08/09/2018 11:20 AM PRE SCHOOL MANAGER 08/09/2018 Narrative Resulting Agency Comment [employer] [address] [place] [address] [phone] Shannen Thomas MD LAB - SEROLOGY ORDE RABLES [facility] INSURANCE BILL [address] [place] [address] * CYCLIC CITRUL PEPTIDE ANTIBODY IGG/IGA (CCP) (08/09/2018 11:20 AM PRE SCHOOL MANAGER) CCP Antibodies IgG/IgA 9 0 - 19 units [facility] INSURANCE BILL Comment: Negative <20 Weak positive 20 - 39 Moderate positive 40 - 59 Strong positive >59 Blood BLOOD SPECIMEN / Unknown 08/09/2018 11:20 AM PRE SCHOOL MANAGER 08/09/2018 Narrative Resulting Agency Comment [address] [phone] Shannen Thomas MD LAB - SEROLOGY HAYLEY SILVA [facility] INSURANCE BILL [address] [place] [address] * URINALYSIS W/MICROSCOPIC REFLEX TO CULTURE (08/09/2018 11:20 AM PRE SCHOOL MANAGER) Specific [place] UA 1.022 1.005 - 1.030 [facility] INSURANCE [...] CATCH PROCEDURE / Unknown 08/09/2018 11:20 AM PRE SCHOOL MANAGER 08/09/2018 Narrative Resulting Agency [facility] [address] [facility] [id number] Shannen Thomas MD LAB - URINALYSIS OR DERABLES Performing Organization Address [facility] Co de Phone Number [facility] INSURANCE BILL [address] [place] [address] * TISSUE TRANSGLUTAMINASE AB IGG (08/09/2018 11:20 AM PRE SCHOOL MANAGER) TTG Antibody IgG <2 0 - 5 U/mL [facility] INSURANCE BILL Comment: Negative 0 - 5 Weak Positive 6 - 9 Positive >9 Blood BLOOD SPECIMEN / Unknown 08/09/2018 11:20 AM PRE SCHOOL MANAGER 08/09/2018 Narrative Resulting Agency Comment [facility] [address] [facility] [phone] Shannen Thomas MD LAB - CHEMISTRY ORD ERABLES Performing Organization Address [facility] de Phone Number [facility] INSURANCE BILL [address] [place] [address] * TISSUE TRANSGLUTAMINASE AB IGA (08/09/2018 11:20 AM PRE SCHOOL MANAGER) TTG Antibody IgA <2 0 - 3 U/mL [facility] INSURANCE BILL Comment: Negative 0 - 3 Weak Positive 4 - 10 Positive >10 . Tissue Transglutaminase (tTG) has been identified as the endomysial antigen. Studies have demonstr- ated that endomysial IgA antibodies have over 99% specificity for gluten sensitive enteropathy. Blood BLOOD SPECIMEN / Unknown 08/09/2018 11:20 AM PRE SCHOOL MANAGER 08/09/2018 Narrative Resulting Agency Comment [facility] [address] [facility] [id number] Shannen Thomas MD LAB - SEROLOGY ORDE RABLES Performing Organization Address [facility] Co de Phone Number [facility] INSURANCE BILL [address] [place] [address] * SHERMAN (SM) ANTIBODY SUZANNE (08/09/2018 11:20 AM PRE SCHOOL MANAGER) Sherman (SUZANNE) Antibody <0.2 0.0 - 0.9 AI [facility] INSURANCE BILL Blood BLOOD SPECIMEN / Unknown 08/09/2018 11:20 AM PRE SCHOOL MANAGER 08/09/2018 Narrative Resulting Agency Comment [facility] [address] [facility] [id number] Shannen Thomas MD LAB - CHEMISTRY ORD ERABLES [facility] INSURANCE BILL [address] [place] [address] * APPRENTICE PAINTER BRUSH ANTIBODY (08/09/2018 11:20 AM PRE SCHOOL MANAGER) APPRENTICE PAINTER BRUSH Antibody <0.2 0.0 - 0.9 AI [facility] INSURANCE BILL Blood BLOOD SPECIMEN / Unknown 08/09/2018 11:20 AM PRE SCHOOL MANAGER 08/09/2018 Narrative Resulting Agency Comment [facility] [address] [facility] [id number] Shannen Thomas MD LAB - CHEMISTRY ORD ERABLES [facility] INSURANCE BILL [address] [place] [address] * RHEUMATOID FACTOR BLOOD QUANTITATIVE (08/09/2018 11:20 AM PRE SCHOOL MANAGER) Rheumatoid Factor <10.0 0.0 - 13.9 IU/mL [facility] INSURANCE BILL Blood BLOOD SPECIMEN / Unknown 08/09/2018 11:20 AM PRE SCHOOL MANAGER 08/09/2018 Narrative Resulting Agency Comment [facility] [address] [facility] [id number] Shannen Thomas MD LAB - CHEMISTRY ORD ERABLES [facility] INSURANCE BILL [address] [place] [address] * SS-A/SS-B (SJOGRENS) ANTIBODY PANEL (08/09/2018 11:20 AM PRE SCHOOL MANAGER) Sjogren's Antibodies (SSA) <0.2 0.0 - 0.9 AI [facility] INSURANCE BILL Sjogren's Antibodies (SSB) <0.2 0.0 - 0.9 AI [facility] INSURANCE BILL Blood BLOOD SPECIMEN / Unknown 08/09/2018 11:20 AM PRE SCHOOL MANAGER 08/09/2018 Narrative Resulting Agency Comment [facility] [address] [facility] [id number] Shannen Thomas MD LAB - CHEMISTRY ORD ERABLES [facility] INSURANCE BILL [address] [place] [address] * THYROID PEROXIDASE ANTIBODY (08/09/2018 11:20 AM PRE SCHOOL MANAGER) Thyroid Peroxidase TPO Antibody 15 0 - 34 IU/mL [facility] INSURANCE BILL Blood BLOOD SPECIMEN / Unknown 08/09/2018 11:20 AM PRE SCHOOL MANAGER 08/09/2018 Narrative Resulting Agency Comment [facility] [address] [facility] [id number] Shannen Thomas MD LAB - CHEMISTRY ORD ERABLES Performing Organization Address [facility] Co de Phone Number [facility] INSURANCE BILL [address] [place] [address] * THYROGLOBULIN ANTIBODY (08/09/2018 11:20 AM PRE SCHOOL MANAGER) Thyroglobulin Antibody <1.0 0.0 - 0.9 IU/mL [facility] INSURANCE BILL Comment:Thyroglobulin Antibo dy measured by Radha Robin Methodology Blood BLOOD SPECIMEN / Unknown 08/09/2018 11:20 AM PRE SCHOOL MANAGER 08/09/2018 Narrative Resulting Agency Comment [facility] [address] [facility] [id number] Shannen Thomas MD LAB - CHEMISTRY ORD ERABLES [facility] INSURANCE BILL [address] [place] [address] * HISTONE ANTIBODY (08/09/2018 11:20 AM PRE SCHOOL MANAGER) Anti-Histone Antibody 0.4 0.0 - 0.9 Units [facility] INSURANCE BILL Comment: Negative <1.0 Weak Positive 1.0 - 1.5 Moderate Positive 1.6 - 2.5 Strong Positive >2.5 Blood BLOOD SPECIMEN / Unknown 08/09/2018 11:20 AM PRE SCHOOL MANAGER 08/09/2018 Narrative Resulting Agency Comment [address] [id number] Shannen Thomas MD LAB - CHEMISTRY ORD ERABLES [facility] INSURANCE BILL [address] [place] [address] * COMPLEMENT TOTAL (08/09/2018 11:20 AM PRE SCHOOL MANAGER) Complement Total CH50 >60 >41 U/mL [facility] INSURANCE BILL Blood BLOOD SPECIMEN / Unknown 08/09/2018 11:20 AM PRE SCHOOL MANAGER 08/09/2018 Narrative Resulting Agency [facility] [address] [facility] [id number] Shannen Thomas MD LAB - CHEMISTRY ORD ERABLES Performing Organization Address [facility] Co de Phone Number [facility] INSURANCE BILL [address] [place] [address] * HEPATITIS C ANTIBODY (08/09/2018 11:20 AM PRE SCHOOL MANAGER) Hepatitis C Antibody <0.1 0.0 - 0.9 s/co ratio [facility] INSURANCE BILL Comment: Negative: < 0.8 Indeterminate: 0.8 - 0.9 Positive: > 0.9 . The CDC recommends that a positive HCV antibody result be followed up with a HCV Nucleic Acid Amplification test (921089). Blood BLOOD SPECIMEN / Unknown 08/09/2018 11:20 AM PRE SCHOOL MANAGER 08/09/2018 Narrative Resulting Agency [facility] [address] [facility] [id number] Shannen Thomas MD LAB - CHEMISTRY ORD ERABLES [facility] INSURANCE BILL [address] [place] [address] * (ABNORMAL) MAGALY STAINING PATTERNS REFLEXED (08/09/2018 11:19 AM PRE SCHOOL MANAGER) Homogeneous Pattern 1:160(H) [facility] INSURANCE BILL Nucleolar [...] titers Nucleosomes, Histones Drug-induced SLE Speckled Sm, APPRENTICE PAINTER BRUSH, SCL-70, SLE,MCTD,PSS (diffuse form), SS-A/SS-B Sjogrens Nucleolar SCL-70, PM-1/SCL High titers Scleroderma, PM/DM Centromere Centromere PSS (limited form) w/Crest syndrome variable Nuclear Dot [id number] Primary Biliary Cirrhosis Nuclear GP210, Primary Biliary Cirrhosis Membrane antonio A,B,C 08/09/2018 11:1 9 AM PRE SCHOOL MANAGER 08/09/2018 Narrative Resulting Agency Comment [facility] [address] [facility] [id number] Shannen Thomas MD LAB - PATHOLOGY/CYT OLOGY ORDERABLES [facility] [address] [place] [address] * XR FOOT RIGHT 2VW (12/26/2017 1:35 [...] soft tissues are normal. Procedure Note Rene Kohelr MD - 12/26/2017 Exam: 1.XR HAND RIGHT [...] on12/26/2017 2:53 PM . Jess[place]ano Star Wilson COAL PULVERIZING OPERATOR-DELIVERY TECH DIAGNOSTI C IMAGING ORDERABLES * XR FOOT LEFT 2VW (12/26/2017 1:35 PM CDT) Anatomical Region Laterality Modality Ankle / Foot Radiographic Sabina ging 12/26/2017 2:46 PM CDT Impressions 12/26/2017 2:53 PM CDT Impression: No radiographic evidence of arthritis in the right or left hands, wrists, knees, or feet. This report was electronically signed by RENE KOLHER MD on 12/26/2017 2:53 PM . Narrative [...] on12/26/2017 2:53 PM . Timmy Graves Steve COAL PULVERIZING OPERATOR-DELIVERY TECH DIAGNOSTI C IMAGING ORDERABLES * XR KNEE [...] MD on12/26/2017 2:53 PM . Timmy Wilson COAL PULVERIZING OPERATOR-DELIVERY TECH DIAGNOSTI C IMAGING ORDERABLES * XR KNEE [...] MD on12/26/2017 2:53 PM . Timmy Wilson COAL PULVERIZING OPERATOR-DELIVERY TECH DIAGNOSTI C IMAGING ORDERABLES * XR HAND [...] MD on12/26/2017 2:53 PM . Timmy Wilson COAL PULVERIZING OPERATOR-DELIVERY TECH DIAGNOSTI C IMAGING ORDERABLES * XR HAND [...] MD on12/26/2017 2:53 PM . Timmy Wilson COAL PULVERIZING OPERATOR-DELIVERY TECH DIAGNOSTI C IMAGING ORDERABLES * XR WRIST [...] MD on12/26/2017 2:53 PM . Timmy Wilson COAL PULVERIZING OPERATOR-DELIVERY TECH DIAGNOSTI C IMAGING ORDERABLES * XR WRIST [...] APRN-KATIE DIAGNOSTI C IMAGING ORDERABLES Care Teams Generator Assembler Relationship Specialty Start Date End Date Timmy Wilson APRN-CNP [address] [place] [phone] PCP - General Nurse Practitioner 12/26/17
--- OUTSIDE RECORDS SUMMARY | 2024-08-14 22:06 | XMS_ITS | Referral Summary ---
Author Organization [facility] Address [address] [place] [address] Care Team Providers Care Scruff Worker Name Role Phone Timmy Wilson ELECTRO MECHANICAL SOLAR TECHNICIAN-GRAVITY MANAGER Primary Care Pro vider Source Comments [facility],non-owned Affiliates and Associated Physician Practices is amultiple site organization consisting of ambulatory clinics and hospital sitesin [place], [place], [place] and [place]. This disclosure is being madepursuant to the Care Everywhere program and may not contain all information available regarding this patient. Last updated 18.[facility] Allergies No known active allergies Medications * [...] 36.1 C (97 F) 06/25/2020 2:41 PM OPEN HEARTH HELPER Respiratory Rate - - Oxygen Saturation 99% 10/04/2018 11:59 AM CDT Inhaled Oxygen Concentration - - Weight 93 kg (205 lb) 06/25/2020 2:41 PM OPEN HEARTH HELPER Height 157.5 cm (5' 2 ) 06/25/2020 2:41 PM OPEN HEARTH HELPER Body Mass Index 37.49 06/25/2020 2:41 PM OPEN HEARTH HELPER Plan of Treatment Not on file Procedures Procedure Name Priority Date/Time Associated Diagnosis Comments HEPATITIS C AB SCREEN RFLX NAAT QUANT Routine 06/25/2020 3:50 PM OPEN HEARTH HELPER Positive ALBARO (antinuclear antibody) from Last 3 Months or Most Recently Relevant to Health Maintenance Results * HEPATITIS C AB SCREEN RFLX NAAT QUANT (06/25/2020 3:50 PM OPEN HEARTH HELPER) Hepatitis C Antibody Non-react lakshmi Non-reac tive 06/25/2020 5:[address]TH HELPER [facility] Comment:Hepatitis C Antibody screen indicates [...] Lab Venipuncture / Unknown 06/25/2020 3:50 PM OPEN HEARTH HELPER 06/25/2020 5:52 PM OPEN HEARTH HELPER Karina Lazaro MD LAB - CHEMISTRY HAYLEY Dawson Organization Address City/State/ZIP Co de Phone Number [facility] [address] [place] [address], [facility] [phone] from Last 3 Months or Most Recently Relevant to Health Maintenance Care Teams Scruff Worker Relationship Specialty Start Date End Date Timmy Wilson, ELLE-GRAVITY MANAGER [address] [place] [phone] PCP - General Nurse Practitioner 12/26/17
--- OUTSIDE RECORDS SUMMARY | 2024-08-14 22:06 | XMS_ITS | Clinical Summary ---
Author Organization [facility] Address [address] [place] [address] Care Team Providers Care Panel Monitor Name Role Phone Timmy Wilson HOMICIDE SQUAD SERGEANT-SELF PROPELLED HOT MIX ROLLER OPERATOR Primary Care Pro vider Source Comments [facility],non-owned Affiliates and Associated Physician Practices is amultiple site organization consisting of ambulatory clinics and hospital sitesin [place], [place], [place] and [place]. This disclosure is being madepursuant to the Care Everywhere program and may not contain all information available regarding this patient. Last updated 18.[employer] [facility] Allergies No known active allergies Medications * [...] 36.1 C (97 F) 06/25/2020 2:41 PM LOAN INTERVIEWER MORTGAGE Respiratory Rate - - Oxygen Saturation 99% 10/04/2018 11:59 AM CDT Inhaled Oxygen Concentration - - Weight 93 kg (205 lb) 06/25/2020 2:41 PM LOAN INTERVIEWER MORTGAGE Height 157.5 cm (5' 2 ) 06/25/2020 2:41 PM LOAN INTERVIEWER MORTGAGE Body Mass Index 37.49 06/25/2020 2:41 PM LOAN INTERVIEWER MORTGAGE Plan of Treatment Health Maintenance Due Date [...] RFLX NAAT QUANT Routine 06/25/2020 3:50 PM LOAN INTERVIEWER MORTGAGE Positive ALBARO (antinuclear antibody) from Last 3 Months or Most Recently Relevant to Health Maintenance Results * HEPATITIS C AB SCREEN RFLX NAAT QUANT (06/25/2020 3:50 PM LOAN INTERVIEWER MORTGAGE) Hepatitis C Antibody Non-react lakshmi Non-reac tive 06/25/2020 5:52 PM LOAN INTERVIEWER MORTGAGE [facility] Comment:Hepatitis C Antibody screen indicates [...] Lab Venipuncture / Unknown 06/25/2020 3:50 PM LOAN INTERVIEWER MORTGAGE 06/25/2020 5:52 PM LOAN INTERVIEWER MORTGAGE Karina Lazaro MD LAB - CHEMISTRY HAYLEY SILVA [facility] Organization Address City/State/ZIP Co de Phone Number [facility] [address] [place] [address], [facility] [phone] from Last 3 Months or Most Recently Relevant to Health Maintenance Care Teams Panel Monitor Relationship Specialty Start Date End Date Timmy Wilson APRN-SELF PROPELLED HOT MIX ROLLER OPERATOR [address] [place] [phone] PCP - General Nurse Practitioner 12/26/17
[2024-08-14] MEDS: ACETAMINOPHEN 500 MG TABLET 1000 MG PO (22:11)
[2024-08-14] MEDS: KETOROLAC 30 MG/ML VIAL (*BKC) 15 MG IM (22:12)
[2024-08-14 22:23] VITALS: BP 127/81; PULSE 76; RESP 16; TEMP 36.7; O2SAT 99
== END 2024-08-14 22:26 | disposition home or self-care (01) ==
LOC: ANHED 22:04
PROVIDERS: Emergency Provider Student in an Organized Health Care Education/Training Program; PCP Registered Nurse
DX: S39.012A Strain of muscle, fascia and tendon of lower back, initial encounter (principal); S29.012A Strain of muscle and tendon of back wall of thorax, initial encounter; M32.9 Systemic lupus erythematosus, unspecified; V43.52XA Car driver injured in collision with other type car in traffic accident, initial encounter
CPT/HCPCS: 96372; 99283; A9270; J1885